=== PATIENT | male | born 1950 | race Caucasian/White ===

== ENCOUNTER 2024-09-19 16:33 | Inpatient (IN) | payer OTHER ==
[2024-09-19 17:08] VITALS: BMI 25.8
[2024-09-19 18:10] LABS: BASO % 0.4 % (0-2.0); EOS % 5.6 % (0-4.5); HEMATOCRIT 31.5 % (35.4-49); HEMOGLOBIN 9.9 GM/dL (11.7-16.9); LYMPH % 28.9 % (8-40); MCH 26.3 pg (25.7-33.7); MCHC 31.5 g/dl (32.0-35.9); MEAN CELL VOLUME 83.5 fl (80-96); MONO % 6.9 % (3.8-10.2); NEUT % 58.2 % (42.8-82.8); PLATELET COUNT 414 10^3/uL (134-434); RBC 3.77 M/mm3 (4.00-5.60); RDW 17.9 % (11.9-15.9); WHITE BLOOD COUNT 13.5 K/mm3 (4.0-10.0)
[2024-09-19 18:12] LABS: POTASSIUM 4.7 mmol/L (3.5-5.1)
[2024-09-19 18:14] LABS: ALBUMIN 2.2 g/dl (3.4-5.0); BLOOD UREA NITROGEN 30.6 mg/dL (7-18); CALCIUM 8.6 mg/dL (8.5-10.1)
[2024-09-19 18:17] LABS: CREATININE 0.8 mg/dL (0.55-1.3)
[2024-09-19 18:19] LABS: BILIRUBIN,TOTAL 0.2 mg/dL (0.2-1); TOT PROT 6.8 g/dl (6.4-8.2)
[2024-09-19 18:32] LABS: EPI CELLS >36 /uL (0-25.1); HYALINE CASTS 4 /uL (0-3.1); URINE APPEARANCE CLEAR; URINE BACTERIA 20 /uL (0-1359); URINE BILIRUBIN NEGATIVE (NEGATIVE); URINE COLOR YELLOW; URINE GLUCOSE (UA) NEGATIVE (NEGATIVE); URINE KETONE NEGATIVE (NEGATIVE); URINE LEUK ESTERASE 2+ (NEGATIVE); URINE NITRITE NEGATIVE (NEGATIVE); URINE PROTEIN 1+ (NEGATIVE); URINE RBC 15 /uL (0-23.9); URINE UROBILINOGEN 0.2 mg/dL (0.2-1.0); URINE WBC 443 /uL (0-25.8)
[2024-09-19] MEDS: SODIUM CHLORIDE 0.9% 500 ML INFUS.BAG IV ONE (18:36)
[2024-09-19 19:08] LABS: HIV INTERPRETATION NEGATIVE (NEGATIVE)
[2024-09-19] MEDS ORDERED: PIPERACILLIN/TAZOB 3.375 GM 3.375 GM in DEXTROSE 5%-WATER - 50 ML IVPB SCH (22:38)
[2024-09-19] MEDS ORDERED: VANCOMYCIN 1,000 MG in DEXTROSE 5%-WATER - 250 ML IVPB SCH (22:45)
[2024-09-19] MEDS ORDERED: PIPERACILLIN/TAZOB 3.375 GM 3.375 GM/50 ML BAG IVPB ONE (23:08)
[2024-09-19] MEDS ORDERED: VANCOMYCIN 1 GRAM (PRE-DOCKED) 1,000 MG/250 ML BAG IVPB ONE (23:08)
[2024-09-19] MEDS: PIPERACILLIN/TAZOB 3.375 GM 3.375 GM in DEXTROSE 5%-WATER - 50 ML IVPB SCH (23:30)
[2024-09-20] MEDS: VANCOMYCIN 1,000 MG in DEXTROSE 5%-WATER - 250 ML IVPB SCH (00:42)
[2024-09-20] MEDS ORDERED: PIPERACILLIN/TAZOB 3.375 GM 3.375 GM/50 ML BAG IVPB ONE ×2 (05:26→11:51)
[2024-09-20] MEDS: INSULIN ASPART SLIDING SCALE (NOVOLOG) 1 VIAL SQ SCH (07:09)
[2024-09-20 07:18] LABS: POTASSIUM 4.2 mmol/L (3.5-5.1)
[2024-09-20 07:20] LABS: CALCIUM 8.8 mg/dL (8.5-10.1)
[2024-09-20 07:21] LABS: ALBUMIN 2.3 g/dl (3.4-5.0); BLOOD UREA NITROGEN 21.3 mg/dL (7-18)
[2024-09-20 07:24] LABS: CREATININE 0.8 mg/dL (0.55-1.3)
[2024-09-20 07:25] LABS: BILIRUBIN,TOTAL 0.4 mg/dL (0.2-1)
[2024-09-20 07:47] LABS: HEMATOCRIT 30.9 % (35.4-49); HEMOGLOBIN 9.8 GM/dL (11.7-16.9); MCH 26.6 pg (25.7-33.7); MCHC 31.7 g/dl (32.0-35.9); MEAN CELL VOLUME 84.1 fl (80-96); PLATELET COUNT 350 10^3/uL (134-434); RBC 3.68 M/mm3 (4.00-5.60); RDW 17.2 % (11.9-15.9); WHITE BLOOD COUNT 13.2 K/mm3 (4.0-10.0)
[2024-09-20] MEDS ORDERED: VANCOMYCIN 1 GRAM (PRE-DOCKED) 1,000 MG/250 ML BAG IVPB ONE ×2 (11:51→21:58)
[2024-09-20] MEDS ORDERED: LOSARTAN POTASSIUM 50 MG TABLET ONE (11:51)
[2024-09-20] MEDS: LOSARTAN POTASSIUM 50 MG TABLET GT SCH (12:10)
[2024-09-20] MEDS: PATIENT'S OWN MEDICATION (NON-FORMULARY) (Aa/Hydrolyzed Collagen, Whey [Lps 15-30 Liquid] GT SCH (14:38)
[2024-09-20] MEDS: PATIENT'S OWN MEDICATION (NON-FORMULARY) (Argin/Glut/Cahmb/Collag/Mv-Min [Juven Packet] 1 GT SCH (14:38)
[2024-09-20] MEDS: PATIENT'S OWN MEDICATION (NON-FORMULARY) (Insulin Glargine,Hum.Rec.Anlog 100 UNITS/ML Ins) SQ SCH (14:38)
[2024-09-20] MEDS: PATIENT'S OWN MEDICATION (NON-FORMULARY) (Vit C/Ascorbate Calcium,Sodium [Vitamin C 500 Mg GT SCH (14:39)
[2024-09-20] MEDS: PATIENT'S OWN MEDICATION (NON-FORMULARY) (Omeprazole [Omeprazole] 20 MG Tablet.Dr) GT SCH (14:39)
[2024-09-20] MEDS: ZINC GLUCONATE 50 MG GT SCH (14:39)
[2024-09-20] MEDS ORDERED: INSULIN (LEVEMIR) 100 UNITS/ML UNITS SQ ONE (21:43)
[2024-09-20] MEDS ORDERED: FAMOTIDINE 20 MG TABLET ONE (21:43)
[2024-09-20] MEDS ORDERED: ATORVASTATIN CA 40 MG TABLET (FP) ONE (21:43)
[2024-09-20] MEDS: FAMOTIDINE 20 MG/2.5 ML ORAL LIQUID GT SCH (21:46)
[2024-09-20] MEDS: ATORVASTATIN CA 40 MG TABLET (FP) GT SCH (21:46)
[2024-09-20] MEDS: INSULIN (LEVEMIR) 100 UNITS/ML UNITS SQ SCH (21:46)
[2024-09-21 07:37] LABS: POTASSIUM 4.1 mmol/L (3.5-5.1)
[2024-09-21 07:54] LABS: ALBUMIN 2.2 g/dl (3.4-5.0); CALCIUM 8.4 mg/dL (8.5-10.1)
[2024-09-21 07:55] LABS: BLOOD UREA NITROGEN 21.6 mg/dL (7-18)
[2024-09-21 07:59] LABS: BILIRUBIN,TOTAL 0.3 mg/dL (0.2-1); TOT PROT 6.5 g/dl (6.4-8.2)
[2024-09-21 08:01] LABS: BASO % 0.5 % (0-2.0); EOS % 5.8 % (0-4.5); HEMATOCRIT 30.9 % (35.4-49); HEMOGLOBIN 9.8 GM/dL (11.7-16.9); LYMPH % 27.4 % (8-40); MCH 26.4 pg (25.7-33.7); MCHC 31.7 g/dl (32.0-35.9); MEAN CELL VOLUME 83.4 fl (80-96); MEAN PLT VOLUME 7.1 fl (7.5-11.1); MONO % 6.4 % (3.8-10.2); NEUT % 59.9 % (42.8-82.8); PLATELET COUNT 402 10^3/uL (134-434); RBC 3.71 M/mm3 (4.00-5.60); WHITE BLOOD COUNT 12.5 K/mm3 (4.0-10.0)
[2024-09-21] MEDS: ASCORBIC ACID 500 MG/5 ML UNIT DOSE CUP GT SCH (12:05)
[2024-09-21] MEDS: VANCOMYCIN/WATER FOR INJ (PEG) 1,000 MG/200 ML BAG IVPB ONE (12:11)
[2024-09-22] MEDS: ACETAMINOPHEN 1000 MG/100 ML BAG IVPB ONE (01:22)
[2024-09-22 09:14] LABS: HEMATOCRIT 31.4 % (35.4-49); HEMOGLOBIN 9.7 GM/dL (11.7-16.9); MCH 26.1 pg (25.7-33.7); MEAN CELL VOLUME 84.2 fl (80-96); MEAN PLT VOLUME 6.9 fl (7.5-11.1); PLATELET COUNT 431 10^3/uL (134-434); RBC 3.73 M/mm3 (4.00-5.60); RDW 18.4 % (11.9-15.9); WHITE BLOOD COUNT 12.2 K/mm3 (4.0-10.0)
[2024-09-22 09:33] LABS: POTASSIUM 4.2 mmol/L (3.5-5.1)
[2024-09-22 09:36] LABS: ALBUMIN 2.3 g/dl (3.4-5.0); CALCIUM 8.8 mg/dL (8.5-10.1)
[2024-09-22 09:40] LABS: CREATININE 1.3 mg/dL (0.55-1.3)
[2024-09-22 09:41] LABS: BILIRUBIN,TOTAL 0.2 mg/dL (0.2-1); TOT PROT 6.7 g/dl (6.4-8.2)
[2024-09-22] MEDS: NYSTATIN 100,000 UNIT/GM TOPICAL CREAM 15 GM TUBE TP SCH (18:25)
[2024-09-22] MEDS: ZINC OXIDE 20% TOPICAL OINTMENT 30 GM TUBE TP SCH (18:26)
[2024-09-22] MEDS ORDERED: LOPERAMIDE HCL 1 MG/5 ML UNIT DOSE CUP PO ONE (19:51)
[2024-09-22] MEDS ORDERED: LOPERAMIDE HCL 1 MG/5 ML UNIT DOSE CUP PEG ONE (21:00)
[2024-09-22] MEDS: LOPERAMIDE HCL 1 MG/7.5 ML LIQUID GT ONE (22:30)
[2024-09-23 07:06] LABS: HEMATOCRIT 31.6 % (35.4-49); HEMOGLOBIN 9.9 GM/dL (11.7-16.9); MCH 26.5 pg (25.7-33.7); MCHC 31.2 g/dl (32.0-35.9); MEAN CELL VOLUME 84.9 fl (80-96); MEAN PLT VOLUME 7.4 fl (7.5-11.1); PLATELET COUNT 377 10^3/uL (134-434); RBC 3.73 M/mm3 (4.00-5.60); RDW 17.9 % (11.9-15.9); WHITE BLOOD COUNT 13.2 K/mm3 (4.0-10.0)
[2024-09-23 08:55] LABS: POTASSIUM 4.2 mmol/L (3.5-5.1)
[2024-09-23 08:57] LABS: ALBUMIN 2.4 g/dl (3.4-5.0)
[2024-09-23 08:58] LABS: BLOOD UREA NITROGEN 31.7 mg/dL (7-18)
[2024-09-23 09:01] LABS: CREATININE 1.2 mg/dL (0.55-1.3)
[2024-09-23 09:02] LABS: BILIRUBIN,TOTAL 0.3 mg/dL (0.2-1); TOT PROT 6.9 g/dl (6.4-8.2)
[2024-09-23] MEDS: LACTOBACILLUS ACIDOPHILUS 1 TABLET PO SCH (16:26)
[2024-09-23] MEDS: INSULIN ASPART SLIDING SCALE (NOVOLOG) 1 VIAL SQ SCH (16:37)
[2024-09-23] MEDS: INSULIN (LEVEMIR) 100 UNITS/ML UNITS SQ SCH (22:17)
[2024-09-23] MEDS: ATORVASTATIN CA 40 MG TABLET (FP) GT SCH (22:24)
[2024-09-23] MEDS: NYSTATIN 100,000 UNIT/GM TOPICAL CREAM 15 GM TUBE TP SCH (22:53)
[2024-09-23] MEDS: FAMOTIDINE 20 MG/2.5 ML ORAL LIQUID GT SCH (22:54)
[2024-09-23] MEDS: ZINC OXIDE 20% TOPICAL OINTMENT 30 GM TUBE TP SCH (22:54)
[2024-09-24] MEDS ORDERED: ZINC GLUCONATE 50 MG GT SCH (10:00)
[2024-09-24] MEDS: MULTIVIT-MINERALS ORAL LIQUID PO SCH (10:46)
[2024-09-24] MEDS: LOSARTAN POTASSIUM 50 MG TABLET GT SCH (10:46)
[2024-09-24] MEDS: ASCORBIC ACID 500 MG/5 ML UNIT DOSE CUP GT SCH (10:46)
[2024-09-24 13:35] LABS: HEMATOCRIT 32.9 % (35.4-49); HEMOGLOBIN 10.2 GM/dL (11.7-16.9); MCH 26.1 pg (25.7-33.7); MCHC 30.9 g/dl (32.0-35.9); MEAN CELL VOLUME 84.3 fl (80-96); MEAN PLT VOLUME 7.4 fl (7.5-11.1); PLATELET COUNT 371 10^3/uL (134-434); RDW 18.1 % (11.9-15.9); WHITE BLOOD COUNT 12.8 K/mm3 (4.0-10.0)
[2024-09-24 13:56] LABS: POTASSIUM 4.3 mmol/L (3.5-5.1)
[2024-09-24 13:58] LABS: CALCIUM 8.9 mg/dL (8.5-10.1)
[2024-09-24 13:59] LABS: ALBUMIN 2.4 g/dl (3.4-5.0); BLOOD UREA NITROGEN 31.3 mg/dL (7-18)
[2024-09-24 14:02] LABS: CREATININE 1.2 mg/dL (0.55-1.3)
[2024-09-24 14:04] LABS: BILIRUBIN,TOTAL 0.2 mg/dL (0.2-1); TOT PROT 6.9 g/dl (6.4-8.2)
[2024-09-24] MEDS: AMINO ACIDS/PROTEIN HYDROLYS 30 ML LIQUID.PKT PEG SCH (18:14)
[2024-09-24] MEDS: BANATROL PLUS POWDER PACKET PEG SCH (21:51)
[2024-09-25 10:36] LABS: BASO % 0.3 % (0-2.0); EOS % 3.8 % (0-4.5); HEMATOCRIT 30.8 % (35.4-49); HEMOGLOBIN 10.1 GM/dL (11.7-16.9); LYMPH % 25.1 % (8-40); MCH 27.4 pg (25.7-33.7); MCHC 32.7 g/dl (32.0-35.9); MEAN CELL VOLUME 83.9 fl (80-96); MEAN PLT VOLUME 7.2 fl (7.5-11.1); MONO % 6.5 % (3.8-10.2); NEUT % 64.3 % (42.8-82.8); PLATELET COUNT 388 10^3/uL (134-434); RBC 3.68 M/mm3 (4.00-5.60); WHITE BLOOD COUNT 11.6 K/mm3 (4.0-10.0)
[2024-09-25 11:01] LABS: POTASSIUM 4.4 mmol/L (3.5-5.1)
[2024-09-25 11:09] LABS: ALBUMIN 2.4 g/dl (3.4-5.0); CALCIUM 8.9 mg/dL (8.5-10.1); MAGNESIUM 2.3 mg/dL (1.8-2.4)
[2024-09-25 11:10] LABS: BLOOD UREA NITROGEN 34.3 mg/dL (7-18)
[2024-09-25 11:12] LABS: CREATININE 1.3 mg/dL (0.55-1.3); PHOSPHOROUS 3.9 mg/dL (2.5-4.9)
[2024-09-25 11:14] LABS: BILIRUBIN,TOTAL 0.3 mg/dL (0.2-1); TOT PROT 6.8 g/dl (6.4-8.2)
[2024-09-25] MEDS: QUEtiapine FUMARATE 25 MG TABLET GT SCH (13:48)
[2024-09-26 09:24] LABS: BASO % 0.5 % (0-2.0); HEMATOCRIT 31.3 % (35.4-49); HEMOGLOBIN 9.9 GM/dL (11.7-16.9); LYMPH % 23.6 % (8-40); MCH 26.8 pg (25.7-33.7); MCHC 31.7 g/dl (32.0-35.9); MEAN CELL VOLUME 84.7 fl (80-96); MEAN PLT VOLUME 7.4 fl (7.5-11.1); MONO % 5.5 % (3.8-10.2); NEUT % 66.4 % (42.8-82.8); PLATELET COUNT 356 10^3/uL (134-434); WHITE BLOOD COUNT 13.4 K/mm3 (4.0-10.0)
[2024-09-26 09:45] LABS: POTASSIUM 4.5 mmol/L (3.5-5.1)
[2024-09-26 09:46] LABS: CALCIUM 8.6 mg/dL (8.5-10.1)
[2024-09-26 09:48] LABS: ALBUMIN 2.3 g/dl (3.4-5.0); BLOOD UREA NITROGEN 36.6 mg/dL (7-18)
[2024-09-26 09:51] LABS: CREATININE 1.1 mg/dL (0.55-1.3)
[2024-09-26 09:52] LABS: BILIRUBIN,TOTAL 0.3 mg/dL (0.2-1); TOT PROT 6.8 g/dl (6.4-8.2)
[2024-09-27 09:59] LABS: POTASSIUM 4.7 mmol/L (3.5-5.1)
[2024-09-27 10:00] LABS: CALCIUM 8.7 mg/dL (8.5-10.1)
[2024-09-27 10:01] LABS: ALBUMIN 2.2 g/dl (3.4-5.0); BASO % 0.3 % (0-2.0); BLOOD UREA NITROGEN 37.6 mg/dL (7-18); HEMATOCRIT 29.4 % (35.4-49); HEMOGLOBIN 9.2 GM/dL (11.7-16.9); LYMPH % 21.1 % (8-40); MCH 26.3 pg (25.7-33.7); MCHC 31.2 g/dl (32.0-35.9); MEAN CELL VOLUME 84.5 fl (80-96); MEAN PLT VOLUME 7.8 fl (7.5-11.1); MONO % 7.1 % (3.8-10.2); NEUT % 70.5 % (42.8-82.8); PLATELET COUNT 355 10^3/uL (134-434); RBC 3.48 M/mm3 (4.00-5.60); RDW 17.9 % (11.9-15.9); WHITE BLOOD COUNT 18.5 K/mm3 (4.0-10.0)
[2024-09-27 10:04] LABS: CREATININE 1.2 mg/dL (0.55-1.3)
[2024-09-27 10:05] LABS: BILIRUBIN,TOTAL 0.3 mg/dL (0.2-1); TOT PROT 6.9 g/dl (6.4-8.2)
[2024-09-27] MEDS: METOPROLOL TARTRATE 25 MG TABLET (FP) GT SCH (12:55)
[2024-09-27] MEDS ORDERED: ACETAMINOPHEN 325 MG TABLET (FP) PO PRN (13:11)
[2024-09-27] MEDS: ACETAMINOPHEN 650 MG/20.3 ML ORAL SOLUTION (CUPS) GT PRN (13:33)
[2024-09-27 18:32] LABS: EPI CELLS 17 /uL (0-25.1); HYALINE CASTS 4 /uL (0-3.1); URINE APPEARANCE TURBID; URINE BACTERIA 15 /uL (0-1359); URINE BILIRUBIN NEGATIVE (NEGATIVE); URINE COLOR YELLOW; URINE GLUCOSE (UA) NEGATIVE (NEGATIVE); URINE KETONE NEGATIVE (NEGATIVE); URINE LEUK ESTERASE 2+ (NEGATIVE); URINE NITRITE NEGATIVE (NEGATIVE); URINE PROTEIN 1+ (NEGATIVE); URINE RBC 50 /uL (0-23.9); URINE UROBILINOGEN 0.2 mg/dL (0.2-1.0); URINE WBC 1094 /uL (0-25.8)
[2024-09-27] MEDS ORDERED: INSULIN ASPART SLIDING SCALE (NOVOLOG) 1 VIAL SQ ONE (19:41)
[2024-09-27] MEDS: PIPERACILLIN/TAZOB 3.375 GM 50 ML IVPB SCH (19:50)
[2024-09-28 13:07] LABS: BASO % 0.4 % (0-2.0); EOS % 2.1 % (0-4.5); HEMATOCRIT 25.5 % (35.4-49); HEMOGLOBIN 8.1 GM/dL (11.7-16.9); LYMPH % 22.7 % (8-40); MCH 26.3 pg (25.7-33.7); MCHC 31.7 g/dl (32.0-35.9); MEAN CELL VOLUME 82.9 fl (80-96); MEAN PLT VOLUME 7.8 fl (7.5-11.1); MONO % 7.3 % (3.8-10.2); NEUT % 67.5 % (42.8-82.8); PLATELET COUNT 298 10^3/uL (134-434); RBC 3.07 M/mm3 (4.00-5.60); RDW 18.2 % (11.9-15.9); WHITE BLOOD COUNT 12.5 K/mm3 (4.0-10.0)
[2024-09-28 13:26] LABS: POTASSIUM 4.6 mmol/L (3.5-5.1)
[2024-09-28 13:28] LABS: CALCIUM 8.5 mg/dL (8.5-10.1)
[2024-09-28 13:29] LABS: BLOOD UREA NITROGEN 48.2 mg/dL (7-18)
[2024-09-28 13:32] LABS: CREATININE 1.5 mg/dL (0.55-1.3)
[2024-09-28 13:34] LABS: BILIRUBIN,TOTAL 0.3 mg/dL (0.2-1); TOT PROT 6.4 g/dl (6.4-8.2)
[2024-09-28] MEDS: DEXTROSE 5%-NORMAL SALINE 1,000 ML IV SCH ×2 (18:32→18:55)
[2024-09-29] MEDS: LOSARTAN POTASSIUM 50 MG TABLET GT SCH (09:45)
[2024-09-29 09:52] LABS: BASO % 0.5 % (0-2.0); EOS % 3.3 % (0-4.5); HEMATOCRIT 26.5 % (35.4-49); HEMOGLOBIN 8.5 GM/dL (11.7-16.9); LYMPH % 28.1 % (8-40); MCH 26.5 pg (25.7-33.7); MEAN CELL VOLUME 82.8 fl (80-96); MONO % 8.3 % (3.8-10.2); NEUT % 59.8 % (42.8-82.8); PLATELET COUNT 321 10^3/uL (134-434); RDW 17.5 % (11.9-15.9); WHITE BLOOD COUNT 11.8 K/mm3 (4.0-10.0)
[2024-09-29 10:13] LABS: CALCIUM 8.7 mg/dL (8.5-10.1)
[2024-09-29 10:14] LABS: BLOOD UREA NITROGEN 36.5 mg/dL (7-18)
[2024-09-29 10:16] LABS: BILIRUBIN,TOTAL 0.3 mg/dL (0.2-1)
[2024-09-29 10:17] LABS: CREATININE 1.4 mg/dL (0.55-1.3)
[2024-09-29 10:19] LABS: TOT PROT 6.5 g/dl (6.4-8.2)
[2024-09-29] MEDS: DEXTROSE 5%-LACTATED RINGERS 1,000 ML IV SCH (15:24)
[2024-09-29] MEDS: LOPERAMIDE HCL 1 MG/5 ML UNIT DOSE CUP PO ONE (15:25)
[2024-09-29] MEDS: LOPERAMIDE HCL 1 MG/5 ML UNIT DOSE CUP GT ONE (16:15)
[2024-09-30 09:37] LABS: BASO % 0.4 % (0-2.0); HEMATOCRIT 25.1 % (35.4-49); LYMPH % 35.3 % (8-40); MCH 26.7 pg (25.7-33.7); MCHC 31.8 g/dl (32.0-35.9); MEAN CELL VOLUME 83.9 fl (80-96); MEAN PLT VOLUME 7.8 fl (7.5-11.1); MONO % 6.4 % (3.8-10.2); NEUT % 52.9 % (42.8-82.8); PLATELET COUNT 292 10^3/uL (134-434); RBC 2.99 M/mm3 (4.00-5.60); RDW 17.7 % (11.9-15.9); WHITE BLOOD COUNT 10.3 K/mm3 (4.0-10.0)
[2024-09-30 09:46] LABS: POTASSIUM 4.2 mmol/L (3.5-5.1)
[2024-09-30 09:48] LABS: CALCIUM 8.4 mg/dL (8.5-10.1)
[2024-09-30 09:49] LABS: ALBUMIN 1.9 g/dl (3.4-5.0)
[2024-09-30 09:52] LABS: CREATININE 1.2 mg/dL (0.55-1.3)
[2024-09-30 09:53] LABS: BILIRUBIN,TOTAL 0.2 mg/dL (0.2-1)
[2024-09-30 09:54] LABS: TOT PROT 6.2 g/dl (6.4-8.2)
[2024-09-30] MEDS ORDERED: INSULIN ASPART SLIDING SCALE (NOVOLOG) 1 VIAL SQ ONE (12:25)
[2024-09-30 13:28] LABS: INR 1.2 (0.83-1.09); PROTHROMBIN TIME (PATIENT) 13.5 SEC (9.7-13.0)
[2024-10-01 10:05] LABS: INR 1.18 (0.83-1.09); PROTHROMBIN TIME (PATIENT) 13.5 SEC (9.7-13.0)
[2024-10-01 10:06] LABS: BASO % 0.4 % (0-2.0); EOS % 4.6 % (0-4.5); HEMATOCRIT 25.8 % (35.4-49); HEMOGLOBIN 8.2 GM/dL (11.7-16.9); LYMPH % 38.4 % (8-40); MCH 26.2 pg (25.7-33.7); MCHC 31.9 g/dl (32.0-35.9); MEAN CELL VOLUME 82.2 fl (80-96); MEAN PLT VOLUME 7.6 fl (7.5-11.1); NEUT % 50.6 % (42.8-82.8); PLATELET COUNT 338 10^3/uL (134-434); RBC 3.14 M/mm3 (4.00-5.60); RDW 17.2 % (11.9-15.9); WHITE BLOOD COUNT 10.5 K/mm3 (4.0-10.0)
[2024-10-01 10:20] LABS: POTASSIUM 4.3 mmol/L (3.5-5.1)
[2024-10-01 10:37] LABS: CALCIUM 9.2 mg/dL (8.5-10.1)
[2024-10-01 10:38] LABS: BLOOD UREA NITROGEN 21.6 mg/dL (7-18)
[2024-10-01 10:42] LABS: BILIRUBIN,TOTAL 0.2 mg/dL (0.2-1); TOT PROT 6.8 g/dl (6.4-8.2)
[2024-10-01] MEDS: CEFTRIAXONE 1 GM in DEXTROSE 5%-WATER - 50 ML IVPB SCH (11:38)
[2024-10-01] MEDS ORDERED: FENTANYL CITRATE/PF 50 MCG/ML VIAL ONE (12:53)
[2024-10-01] MEDS: FENTANYL CITRATE/PF 50 MCG/ML VIAL IVPUSH ONE (12:56)
[2024-10-01] MEDS ORDERED: MIDAZOLAM HCL 2 MG/2 ML SINGLE DOSE VIAL ONE (13:05)
[2024-10-01] MEDS: MIDAZOLAM HCL 2 MG/2 ML SINGLE DOSE VIAL IVPUSH ONE (13:07)
[2024-10-01] MEDS: CEFTRIAXONE 1 G/50 ML PREMIX 50 ML IVPB SCH (14:40)
[2024-10-02 10:07] LABS: BASO % 0.2 % (0-2.0); EOS % 5.3 % (0-4.5); HEMATOCRIT 29.2 % (35.4-49); HEMOGLOBIN 9.1 GM/dL (11.7-16.9); LYMPH % 22.9 % (8-40); MCH 25.9 pg (25.7-33.7); MCHC 31.3 g/dl (32.0-35.9); MEAN CELL VOLUME 82.9 fl (80-96); MEAN PLT VOLUME 7.6 fl (7.5-11.1); MONO % 2.6 % (3.8-10.2); PLATELET COUNT 402 10^3/uL (134-434); RBC 3.52 M/mm3 (4.00-5.60); RDW 17.7 % (11.9-15.9); WHITE BLOOD COUNT 12.7 K/mm3 (4.0-10.0)
[2024-10-02 10:35] LABS: POTASSIUM 4.7 mmol/L (3.5-5.1)
[2024-10-02 10:37] LABS: ALBUMIN 2.1 g/dl (3.4-5.0); CALCIUM 8.9 mg/dL (8.5-10.1)
[2024-10-02 10:38] LABS: BLOOD UREA NITROGEN 26.5 mg/dL (7-18)
[2024-10-02 10:40] LABS: CREATININE 1.1 mg/dL (0.55-1.3)
[2024-10-02 10:42] LABS: BILIRUBIN,TOTAL 0.2 mg/dL (0.2-1); TOT PROT 6.6 g/dl (6.4-8.2)
[2024-10-03 10:23] LABS: BASO % 0.2 % (0-2.0); EOS % 10.6 % (0-4.5); HEMATOCRIT 29.2 % (35.4-49); HEMOGLOBIN 9.3 GM/dL (11.7-16.9); LYMPH % 17.8 % (8-40); MCH 26.4 pg (25.7-33.7); MEAN CELL VOLUME 82.6 fl (80-96); MEAN PLT VOLUME 7.7 fl (7.5-11.1); MONO % 3.6 % (3.8-10.2); NEUT % 67.8 % (42.8-82.8); PLATELET COUNT 350 10^3/uL (134-434); RBC 3.53 M/mm3 (4.00-5.60); RDW 18.1 % (11.9-15.9); WHITE BLOOD COUNT 15.6 K/mm3 (4.0-10.0)
[2024-10-03 10:29] LABS: POTASSIUM 4.8 mmol/L (3.5-5.1)
[2024-10-03 11:02] LABS: ALBUMIN 2.3 g/dl (3.4-5.0); BLOOD UREA NITROGEN 26.3 mg/dL (7-18)
[2024-10-03 11:03] LABS: BILIRUBIN,TOTAL 0.2 mg/dL (0.2-1)
[2024-10-03 11:04] LABS: CALCIUM 9.2 mg/dL (8.5-10.1)
[2024-10-03 11:05] LABS: CREATININE 1.1 mg/dL (0.55-1.3)
[2024-10-03] MEDS: hydrOXYzine HCL 10 MG/5 ML LIQUID BULK BOTTLE GT PRN (11:23)
[2024-10-03] MEDS: BANATROL PLUS POWDER PACKET PEG SCH (14:15)
[2024-10-03] MEDS: NYSTATIN 100,000 UNIT/GM TOPICAL CREAM 15 GM TUBE TP SCH (21:36)
[2024-10-04 09:52] LABS: BASO % 0.2 % (0-2.0); EOS % 7.5 % (0-4.5); HEMATOCRIT 29.4 % (35.4-49); HEMOGLOBIN 9.2 GM/dL (11.7-16.9); LYMPH % 21.4 % (8-40); MCH 26.1 pg (25.7-33.7); MCHC 31.4 g/dl (32.0-35.9); MEAN CELL VOLUME 83.2 fl (80-96); MEAN PLT VOLUME 7.3 fl (7.5-11.1); MONO % 4.3 % (3.8-10.2); NEUT % 66.6 % (42.8-82.8); PLATELET COUNT 391 10^3/uL (134-434); RBC 3.54 M/mm3 (4.00-5.60); RDW 17.4 % (11.9-15.9); WHITE BLOOD COUNT 16.7 K/mm3 (4.0-10.0)
[2024-10-04] MEDS: CLOTRIMAZOLE 1% CREAM TP SCH (11:18)
[2024-10-05 12:05] LABS: HEMOGLOBIN 9.4 GM/dL (11.7-16.9); MCH 26.1 pg (25.7-33.7); MCHC 31.3 g/dl (32.0-35.9); MEAN CELL VOLUME 83.4 fl (80-96); RBC 3.59 M/mm3 (4.00-5.60); RDW 17.2 % (11.9-15.9); WHITE BLOOD COUNT 17.6 K/mm3 (4.0-10.0)
[2024-10-05 12:30] LABS: POTASSIUM 4.9 mmol/L (3.5-5.1)
[2024-10-05 12:36] LABS: ALBUMIN 2.6 g/dl (3.4-5.0); BLOOD UREA NITROGEN 27.4 mg/dL (7-18); CALCIUM 9.4 mg/dL (8.5-10.1); MAGNESIUM 1.9 mg/dL (1.8-2.4)
[2024-10-05 12:39] LABS: PHOSPHOROUS 3.9 mg/dL (2.5-4.9)
[2024-10-05 12:41] LABS: BILIRUBIN,TOTAL 0.1 mg/dL (0.2-1); TOT PROT 7.6 g/dl (6.4-8.2)
[2024-10-05 12:58] LABS: ANISOCYTOSIS 0; MACROCYTOSIS 0
[2024-10-05 13:33] LABS: PLATELET ESTIMATE ADEQUATE
[2024-10-05 20:44] VITALS: RESP 18
[2024-10-06 09:32] LABS: HEMATOCRIT 30.3 % (35.4-49); HEMOGLOBIN 9.6 GM/dL (11.7-16.9); MCH 26.3 pg (25.7-33.7); MCHC 31.7 g/dl (32.0-35.9); MEAN CELL VOLUME 82.9 fl (80-96); MEAN PLT VOLUME 6.9 fl (7.5-11.1); PLATELET COUNT 544 10^3/uL (134-434); RBC 3.66 M/mm3 (4.00-5.60); RDW 17.8 % (11.9-15.9); WHITE BLOOD COUNT 16.4 K/mm3 (4.0-10.0)
[2024-10-06 09:43] LABS: POTASSIUM 4.8 mmol/L (3.5-5.1)
[2024-10-06 09:52] LABS: ALBUMIN 2.5 g/dl (3.4-5.0); BLOOD UREA NITROGEN 28.2 mg/dL (7-18); CALCIUM 9.5 mg/dL (8.5-10.1); MAGNESIUM 1.9 mg/dL (1.8-2.4)
[2024-10-06 10:00] LABS: CREATININE 0.9 mg/dL (0.55-1.3)
[2024-10-06 10:02] LABS: BILIRUBIN,TOTAL 0.2 mg/dL (0.2-1); TOT PROT 7.4 g/dl (6.4-8.2)
[2024-10-06 10:20] LABS: ANISOCYTOSIS 0; MACROCYTOSIS 0
[2024-10-06] MEDS: ATORVASTATIN CA 40 MG TABLET (FP) GT SCH (21:11)
[2024-10-06] MEDS: FAMOTIDINE 20 MG/2.5 ML ORAL LIQUID PEG SCH (21:15)
[2024-10-06] MEDS ORDERED: ATORVASTATIN CA 40 MG TABLET (FP) PO SCH (22:00)
[2024-10-07 15:03] VITALS: BP 124/68; PULSE 90; TEMP 98.8
== END 2024-10-07 16:15 | DRG 871 ==
LOC: JER 16:33 → INTOOBSV 20:08 → UNDOADMOB 20:08 → JERBED 20:08 → UNDOADMIN 20:08 → JERBED 22:27 → J4W 09-21 00:47 → J5S 09-23 13:24 → OBSVTOIN 09-28 10:37
PROVIDERS: ADMIT Internal Medicine
PROC: 06H03DZ Insertion of Intraluminal Device into Inferior Vena Cava, Percutaneous Approach (ICD-10-PCS; principal; 2024-10-01)
DX: A41.9 Sepsis, unspecified organism (principal); J18.9 Pneumonia, unspecified organism; E87.0 Hyperosmolality and hypernatremia; I69.351 Hemiplegia and hemiparesis following cerebral infarction affecting right dominant side; J96.10 Chronic respiratory failure, unspecified whether with hypoxia or hypercapnia; I82.411 Acute embolism and thrombosis of right femoral vein; N17.9 Acute kidney failure, unspecified; I82.412 Acute embolism and thrombosis of left femoral vein; E11.9 Type 2 diabetes mellitus without complications; E78.5 Hyperlipidemia, unspecified; I10 Essential (primary) hypertension; E86.0 Dehydration; K21.9 Gastro-esophageal reflux disease without esophagitis
CPT/HCPCS: 0241U-QW; 36415; 37191; 70450-TC; 71045-TC-FY; 74018-TC-FY; 76700-TC; 76705-TC; 80053; 80061; 81003; 82272; 82728; 82962; 82977; 83036; 83516; 83540; 83550; 83605; 83735; 84080; 84100; 84443; 84466; 85025; 85027; 85610; 86704; 86803; 86850; 86900; 86901; 87040; 87045; 87046; 87070; 87086; 87186; 87205; 87324; 87340; 87389; 87449; 87481; 87517; 93005; 93010; 93306-TC; 93880-TC; 93970-TC; 97163-GP; 99285-25; G0378; G0480; J0131

== ENCOUNTER 2024-10-18 13:40 | Inpatient (IN) | payer OTHER ==
[2024-10-18 14:49] LABS: HEMATOCRIT 24.4 % (35.4-49); HEMOGLOBIN 7.6 GM/dL (11.7-16.9); MCH 26.3 pg (25.7-33.7); MCHC 31.3 g/dl (32.0-35.9); MEAN CELL VOLUME 84.1 fl (80-96); MEAN PLT VOLUME 7.6 fl (7.5-11.1); PLATELET COUNT 394 10^3/uL (134-434); RDW 18.4 % (11.9-15.9); VENOUS BASE EXCESS -14.5 mmol/L (-2-2); VENOUS O2 SATURATION 31.8 % (70-80); VENOUS PH 7.266 (7.310-7.410); WHITE BLOOD COUNT 22.7 K/mm3 (4.0-10.0)
[2024-10-18 14:54] LABS: INR 1.22 (0.83-1.09); PROTHROMBIN TIME (PATIENT) 13.7 SEC (9.7-13.0)
[2024-10-18 14:57] LABS: ACTIVATED PTT 26.2 SECONDS (25.2-36.5)
[2024-10-18 15:14] LABS: CHLORIDE 120 mmol/L (98-107); POTASSIUM 3.2 mmol/L (3.5-5.1); SODIUM 148 mmol/L (136-145)
[2024-10-18 15:17] LABS: ANION GAP 14 mmol/L (4-13); CO2 14 mmol/L (21-32); GLUCOSE,RANDOM 174 mg/dL (74-106)
[2024-10-18 15:20] LABS: CREATININE 2.4 mg/dL (0.55-1.3); SGOT/AST 28 U/L (15-37); SGPT/ALT 75 U/L (13-61)
[2024-10-18 15:22] LABS: BILIRUBIN,TOTAL 0.2 mg/dL (0.2-1)
[2024-10-18 15:35] LABS: ALBUMIN 0.9 g/dl (3.4-5.0); ALK PHOS 249 U/L (45-117); BLOOD UREA NITROGEN 109.7 mg/dL (7-18)
[2024-10-18 15:36] LABS: LACTIC ACID 3.8 mmol/L (0.4-2.0)
[2024-10-18 15:53] LABS: ANISOCYTOSIS 1+; MACROCYTOSIS 0
[2024-10-18 15:55] LABS: PLATELET ESTIMATE ADEQUATE
[2024-10-18] MEDS: SODIUM CHLORIDE 1,000 ML IV STA (16:38)
[2024-10-18 17:02] LABS: CHLORIDE 99 mmol/L (98-107); POTASSIUM 5.8 mmol/L (3.5-5.1); SODIUM 135 mmol/L (136-145)
[2024-10-18 17:04] LABS: CALCIUM 8.1 mg/dL (8.5-10.1)
[2024-10-18 17:05] LABS: ANION GAP 16 mmol/L (4-13); CO2 20 mmol/L (21-32); GLUCOSE,RANDOM 242 mg/dL (74-106)
[2024-10-18 17:07] LABS: CREATININE 4.3 mg/dL (0.55-1.3); SGOT/AST 66 U/L (15-37); SGPT/ALT 132 U/L (13-61)
[2024-10-18 17:08] LABS: BILIRUBIN,TOTAL 0.4 mg/dL (0.2-1)
[2024-10-18 17:18] LABS: ALBUMIN 1.6 g/dl (3.4-5.0); ALK PHOS 449 U/L (45-117); BLOOD UREA NITROGEN 158.2 mg/dL (7-18); TOT PROT 5.6 g/dl (6.4-8.2)
[2024-10-18] MEDS: SODIUM CHLORIDE 0.9% 500 ML INFUS.BAG IV ONE ×2 (17:24→21:36)
[2024-10-18] MEDS: PANTOPRAZOLE SODIUM 40 MG VIAL IVPUSH ONE ×2 (17:25→20:56)
[2024-10-18] MEDS: SODIUM CHLORIDE 500 ML IV STA (17:47)
[2024-10-18] MEDS ORDERED: PANTOPRAZOLE SODIUM 80 MG/200 ML BAG IVPB ONE (20:20)
[2024-10-18] MEDS ORDERED: VANCOMYCIN 1 GRAM (PRE-DOCKED) 1,000 MG/250 ML BAG IVPB ONE (20:20)
[2024-10-18] MEDS ORDERED: CEFEPIME 1 GM/100 ML BAG IVPB ONE (20:20)
[2024-10-18] MEDS: CEFEPIME HCL 1 GM VIAL (RESTRICTED TO ID) IVPB ONE (20:56)
[2024-10-18] MEDS: VANCOMYCIN 1,000 MG in DEXTROSE 5%-WATER - 250 ML IVPB ONE ×2 (22:16→22:36)
[2024-10-18 22:19] LABS: EPI CELLS 9 /uL (0-25.1); HYALINE CASTS 7 /uL (0-3.1); URINE APPEARANCE TURBID; URINE BILIRUBIN 1+ (NEGATIVE); URINE COLOR DK YELLOW; URINE GLUCOSE (UA) NEGATIVE (NEGATIVE); URINE KETONE TRACE (NEGATIVE); URINE LEUK ESTERASE 2+ (NEGATIVE); URINE NITRITE NEGATIVE (NEGATIVE); URINE PROTEIN 2+ (NEGATIVE); URINE WBC 2369 /uL (0-25.8)
[2024-10-18] MEDS ORDERED: MEROPENEM 500 MG in DEXTROSE 5%-WATER 100 ML IVPB SCH (22:30)
[2024-10-18 22:47] LABS: URINE BACTERIA 146.4 /uL (0-1359); URINE RBC 183.2 /uL (0-23.9)
[2024-10-18 22:48] LABS: URINE CRYSTALS PRESENT /hpf
[2024-10-18 22:49] LABS: YEAST POSITIVE (NEGATIVE)
[2024-10-19] MEDS ORDERED: MEROPENEM 500 MG VIAL (RESTRICTED TO ID) IVPB ONE ×2 (00:43→10:39)
[2024-10-19] MEDS: MEROPENEM-0.9% SODIUM CHLORIDE 500 MG/50 ML BAG IVPB SCH ×2 (00:47→22:10)
[2024-10-19] MEDS ORDERED: HEPARIN NA (PORCINE) 5,000 UNITS/ML 1ML VIAL SQ SCH (06:00)
[2024-10-19] MEDS ORDERED: ENOXAPARIN NA (PORCINE) 40 MG/0.4 ML DISP.SYRIN SQ SCH (10:00)
[2024-10-19] MEDS: INSULIN ASPART SLIDING SCALE (NOVOLOG) 1 VIAL SQ SCH (10:56)
[2024-10-19] MEDS ORDERED: PIPERACILLIN/TAZOB 2.25 GM 2.25 GM in DEXTROSE 5%-WATER - 50 ML IVPB SCH (18:00)
[2024-10-19 18:26] LABS: HEMATOCRIT 36.6 % (35.4-49); HEMOGLOBIN 11.7 GM/dL (11.7-16.9); MCH 26.7 pg (25.7-33.7); MCHC 32.1 g/dl (32.0-35.9); MEAN CELL VOLUME 83.2 fl (80-96); MEAN PLT VOLUME 8.3 fl (7.5-11.1); PLATELET COUNT 520 10^3/uL (134-434); RBC 4.39 M/mm3 (4.00-5.60); RDW 18.2 % (11.9-15.9); WHITE BLOOD COUNT 39.9 K/mm3 (4.0-10.0)
[2024-10-19] MEDS: SODIUM CHLORIDE 1,000 ML IV SCH (18:33)
[2024-10-19 18:47] LABS: CHLORIDE 106 mmol/L (98-107); POTASSIUM 5.8 mmol/L (3.5-5.1); SODIUM 139 mmol/L (136-145)
[2024-10-19 18:50] LABS: CALCIUM 8.6 mg/dL (8.5-10.1)
[2024-10-19 18:51] LABS: ALBUMIN 1.7 g/dl (3.4-5.0); ANION GAP 17 mmol/L (4-13); CO2 17 mmol/L (21-32); GLUCOSE,RANDOM 145 mg/dL (74-106)
[2024-10-19 18:54] LABS: MAGNESIUM 3.2 mg/dL (1.8-2.4); PHOSPHOROUS 8.2 mg/dL (2.5-4.9)
[2024-10-19 18:55] LABS: SGOT/AST 37 U/L (15-37); SGPT/ALT 90 U/L (13-61)
[2024-10-19 18:57] LABS: BILIRUBIN,TOTAL 0.4 mg/dL (0.2-1); CREATININE 4.6 mg/dL (0.55-1.3); IRON SERUM 50 ug/dL (50-175); TOT PROT 5.6 g/dl (6.4-8.2); TOTAL IRON BINDING CAPACITY 169 ug/dL (250-450)
[2024-10-19 19:22] LABS: ANISOCYTOSIS 0; HELMET CELLS 0; HOWELL-JOLLY BODIES 0; MACROCYTOSIS 0; OVALOCYTE 0; ROULEAU 0; SICKELED CELLS 0; TARGET CELLS 0; TEAR DROP CELLS 0; TOXIC GRANULATION 0
[2024-10-19] MEDS: INSULIN REGULAR HUMAN 100 UNITS/ML *VIAL IVPUSH ONE (19:30)
[2024-10-19] MEDS: DEXTROSE 50%-WATER - 25 GM/50 ML VIAL IVPUSH ONE (19:31)
[2024-10-19 19:57] LABS: ALK PHOS 336 U/L (45-117); BLOOD UREA NITROGEN 161.4 mg/dL (7-18)
[2024-10-19] MEDS: LACTATED RINGERS SOLUTION 1,000 ML/1,000 ML INFUS.BAG IV SCH (20:10)
[2024-10-19] MEDS ORDERED: DEXTROSE 50%-WATER 25 GM/50 ML DISP.SYRIN ONE (20:26)
[2024-10-19] MEDS ORDERED: VANCOMYCIN/WATER FOR INJ (PEG) 1,000 MG/200 ML BAG IVPB SCH (22:00)
[2024-10-20 07:19] LABS: HEMATOCRIT 34.7 % (35.4-49); HEMOGLOBIN 11.3 GM/dL (11.7-16.9); MCHC 32.6 g/dl (32.0-35.9); MEAN PLT VOLUME 8.2 fl (7.5-11.1); PLATELET COUNT 470 10^3/uL (134-434); RBC 4.18 M/mm3 (4.00-5.60); RDW 18.3 % (11.9-15.9)
[2024-10-20 07:41] LABS: CHLORIDE 110 mmol/L (98-107); POTASSIUM 5.4 mmol/L (3.5-5.1); SODIUM 140 mmol/L (136-145)
[2024-10-20 07:44] LABS: CALCIUM 8.1 mg/dL (8.5-10.1)
[2024-10-20 07:45] LABS: ANION GAP 11 mmol/L (4-13); CO2 19 mmol/L (21-32); GLUCOSE,RANDOM 120 mg/dL (74-106)
[2024-10-20 07:48] LABS: CREATININE 4.6 mg/dL (0.55-1.3)
[2024-10-20 08:38] LABS: WHITE BLOOD COUNT 38.6 K/mm3 (4.0-10.0)
[2024-10-20] MEDS ORDERED: VANCOMYCIN 500 MG VIAL (RESTRICTED TO ID ONLY) RC SCH (09:00)
[2024-10-20 09:29] LABS: ANISOCYTOSIS 3+; MACROCYTOSIS 0
[2024-10-20] MEDS: VANCOMYCIN 500 MG in DEXTROSE 5%-WATER - 100 ML IVPB SCH ×2 (10:04)
[2024-10-20] MEDS: VANCOMYCIN ORAL SOLUTION 125 MG/2.5 ML GT SCH (12:44)
[2024-10-20 14:56] LABS: BILIRUBIN,DIRECT 0.2 mg/dL (0.0-0.2); SGOT/AST 32 U/L (15-37); SGPT/ALT 75 U/L (13-61)
[2024-10-20 14:57] LABS: BILIRUBIN,TOTAL 0.4 mg/dL (0.2-1)
[2024-10-20 14:59] LABS: ALK PHOS 317 U/L (45-117)
[2024-10-20 15:03] LABS: ALBUMIN 1.6 g/dl (3.4-5.0)
[2024-10-20] MEDS: SODIUM CHLORIDE 500 ML IV STA (22:12)
[2024-10-20] MEDS: SODIUM ZIRCONIUM CYCLOSILICATE (LOKELMA) 5 GM PACKET PO SCH (22:13)
[2024-10-21 07:21] LABS: HEMATOCRIT 29.8 % (35.4-49); HEMOGLOBIN 9.4 GM/dL (11.7-16.9); MCH 26.6 pg (25.7-33.7); MCHC 31.6 g/dl (32.0-35.9); MEAN CELL VOLUME 84.3 fl (80-96); PLATELET COUNT 391 10^3/uL (134-434); RBC 3.53 M/mm3 (4.00-5.60); RDW 18.7 % (11.9-15.9)
[2024-10-21 07:38] LABS: CHLORIDE 110 mmol/L (98-107); POTASSIUM 4.8 mmol/L (3.5-5.1); SODIUM 142 mmol/L (136-145)
[2024-10-21 07:41] LABS: CALCIUM 8.3 mg/dL (8.5-10.1)
[2024-10-21 07:43] LABS: ALBUMIN 1.6 g/dl (3.4-5.0); ANION GAP 14 mmol/L (4-13); CO2 18 mmol/L (21-32); GLUCOSE,RANDOM 179 mg/dL (74-106)
[2024-10-21 07:45] LABS: SGOT/AST 26 U/L (15-37); SGPT/ALT 55 U/L (13-61)
[2024-10-21 07:46] LABS: BILIRUBIN,TOTAL 0.3 mg/dL (0.2-1); CREATININE 4.8 mg/dL (0.55-1.3); TOT PROT 4.6 g/dl (6.4-8.2)
[2024-10-21 07:47] LABS: PHOSPHOROUS 8.1 mg/dL (2.5-4.9)
[2024-10-21 07:49] LABS: ALK PHOS 264 U/L (45-117)
[2024-10-21 08:11] LABS: BLOOD UREA NITROGEN 167.4 mg/dL (7-18)
[2024-10-21 09:19] LABS: ANISOCYTOSIS 0; HELMET CELLS 0; HOWELL-JOLLY BODIES 0; MACROCYTOSIS 0; OVALOCYTE 0; ROULEAU 0; SICKELED CELLS 0; TARGET CELLS 0; TEAR DROP CELLS 0; TOXIC GRANULATION 0
[2024-10-21] MEDS: SODIUM CHLORIDE 500 ML IV STA (10:55)
[2024-10-21 13:01] LABS: CREATININE 4.9 mg/dL (0.55-1.3)
[2024-10-21] MEDS: LACTATED RINGERS SOLUTION 1,000 ML/1,000 ML INFUS.BAG IV SCH (16:14)
[2024-10-21] MEDS: VANCOMYCIN PREMIX 1.5 GM 1,500 MG/300 ML BAG IVPB ONE (17:51)
[2024-10-22 09:39] LABS: HEMATOCRIT 31.3 % (35.4-49); HEMOGLOBIN 9.6 GM/dL (11.7-16.9); MCH 26.1 pg (25.7-33.7); MCHC 30.8 g/dl (32.0-35.9); MEAN CELL VOLUME 84.7 fl (80-96); MEAN PLT VOLUME 8.1 fl (7.5-11.1); PLATELET COUNT 387 10^3/uL (134-434); RDW 18.4 % (11.9-15.9); WHITE BLOOD COUNT 22.1 K/mm3 (4.0-10.0)
[2024-10-22 09:58] LABS: CHLORIDE 112 mmol/L (98-107); POTASSIUM 4.5 mmol/L (3.5-5.1); SODIUM 146 mmol/L (136-145)
[2024-10-22 10:03] LABS: ALBUMIN 1.5 g/dl (3.4-5.0); ANION GAP 18 mmol/L (4-13); CO2 16 mmol/L (21-32); MAGNESIUM 2.9 mg/dL (1.8-2.4)
[2024-10-22 10:04] LABS: GLUCOSE,RANDOM 198 mg/dL (74-106)
[2024-10-22 10:05] LABS: SGPT/ALT 54 U/L (13-61)
[2024-10-22 10:06] LABS: CREATININE 4.7 mg/dL (0.55-1.3); PHOSPHOROUS 7.3 mg/dL (2.5-4.9); SGOT/AST 39 U/L (15-37)
[2024-10-22 10:07] LABS: BILIRUBIN,TOTAL 0.3 mg/dL (0.2-1); TOT PROT 4.5 g/dl (6.4-8.2)
[2024-10-22 10:20] LABS: ALK PHOS 344 U/L (45-117); BLOOD UREA NITROGEN > 150.0 mg/dL (7-18)
[2024-10-22 11:59] LABS: ANISOCYTOSIS 1+; MACROCYTOSIS 1+
[2024-10-22] MEDS: SODIUM CHLORIDE 500 ML IV STA (12:34)
[2024-10-22] MEDS: VANCOMYCIN PREMIX 1.5 GM 1,500 MG/300 ML BAG IVPB ONE (15:50)
[2024-10-23 10:45] LABS: CHLORIDE 113 mmol/L (98-107); POTASSIUM 4.3 mmol/L (3.5-5.1); SODIUM 145 mmol/L (136-145)
[2024-10-23 10:46] LABS: ALBUMIN 1.7 g/dl (3.4-5.0)
[2024-10-23 10:47] LABS: ANION GAP 14 mmol/L (4-13); CALCIUM 8.1 mg/dL (8.5-10.1); CO2 19 mmol/L (21-32)
[2024-10-23 10:48] LABS: GLUCOSE,RANDOM 220 mg/dL (74-106); MAGNESIUM 2.9 mg/dL (1.8-2.4)
[2024-10-23 10:50] LABS: CREATININE 4.6 mg/dL (0.55-1.3); SGPT/ALT 72 U/L (13-61)
[2024-10-23 10:51] LABS: PHOSPHOROUS 7.2 mg/dL (2.5-4.9)
[2024-10-23 10:52] LABS: BILIRUBIN,TOTAL 0.4 mg/dL (0.2-1); TOT PROT 4.8 g/dl (6.4-8.2)
[2024-10-23 10:55] LABS: ALK PHOS 386 U/L (45-117)
[2024-10-23 10:56] LABS: SGOT/AST 68 U/L (15-37)
[2024-10-23] MEDS: MEROPENEM-0.9% SODIUM CHLORIDE 500 MG/50 ML BAG IVPB SCH (11:01)
[2024-10-23 11:12] LABS: HEMATOCRIT 32.9 % (35.4-49); HEMOGLOBIN 10.3 GM/dL (11.7-16.9); MCH 26.9 pg (25.7-33.7); MCHC 31.2 g/dl (32.0-35.9); MEAN CELL VOLUME 86.1 fl (80-96); MEAN PLT VOLUME 8.2 fl (7.5-11.1); PLATELET COUNT 350 10^3/uL (134-434); RBC 3.83 M/mm3 (4.00-5.60); RDW 18.6 % (11.9-15.9); WHITE BLOOD COUNT 21.7 K/mm3 (4.0-10.0)
[2024-10-23 11:42] LABS: BLOOD UREA NITROGEN 154.8 mg/dL (7-18)
[2024-10-23] MEDS: INSULIN ASPART SLIDING SCALE (NOVOLOG) 1 VIAL SQ SCH (12:03)
[2024-10-23 13:30] LABS: ANISOCYTOSIS 1+; MACROCYTOSIS 0
[2024-10-24 08:32] LABS: CHLORIDE 115 mmol/L (98-107); POTASSIUM 4.3 mmol/L (3.5-5.1); SODIUM 145 mmol/L (136-145)
[2024-10-24 08:34] LABS: ALBUMIN 1.5 g/dl (3.4-5.0); ANION GAP 14 mmol/L (4-13); CALCIUM 7.8 mg/dL (8.5-10.1); CO2 16 mmol/L (21-32); GLUCOSE,RANDOM 227 mg/dL (74-106)
[2024-10-24 08:37] LABS: HEMATOCRIT 30.9 % (35.4-49); MCH 26.8 pg (25.7-33.7); MCHC 32.4 g/dl (32.0-35.9); MEAN PLT VOLUME 7.6 fl (7.5-11.1); PLATELET COUNT 346 10^3/uL (134-434); RBC 3.72 M/mm3 (4.00-5.60); RDW 18.5 % (11.9-15.9); WHITE BLOOD COUNT 18.5 K/mm3 (4.0-10.0)
[2024-10-24 08:37] LABS: CREATININE 4.2 mg/dL (0.55-1.3); SGPT/ALT 93 U/L (13-61)
[2024-10-24 08:38] LABS: SGOT/AST 102 U/L (15-37)
[2024-10-24 08:39] LABS: BILIRUBIN,TOTAL 0.4 mg/dL (0.2-1); TOT PROT 4.6 g/dl (6.4-8.2)
[2024-10-24 08:47] LABS: ALK PHOS 429 U/L (45-117); BLOOD UREA NITROGEN 137.1 mg/dL (7-18)
[2024-10-24] MEDS: INSULIN (LEVEMIR) 100 UNITS/ML UNITS SQ SCH (11:43)
[2024-10-24] MEDS: NYSTATIN POWDER 100,000 UNITS/GM - 15 GM TOPICAL POWDER TP SCH (12:39)
[2024-10-25 02:31] VITALS: BMI 25.9
[2024-10-25 08:57] LABS: HEMATOCRIT 33.1 % (35.4-49); HEMOGLOBIN 10.4 GM/dL (11.7-16.9); MCH 26.4 pg (25.7-33.7); MCHC 31.5 g/dl (32.0-35.9); MEAN CELL VOLUME 83.9 fl (80-96); MEAN PLT VOLUME 7.5 fl (7.5-11.1); PLATELET COUNT 353 10^3/uL (134-434); RBC 3.94 M/mm3 (4.00-5.60); RDW 18.8 % (11.9-15.9); WHITE BLOOD COUNT 21.5 K/mm3 (4.0-10.0)
[2024-10-25 09:10] LABS: CHLORIDE 114 mmol/L (98-107); POTASSIUM 3.9 mmol/L (3.5-5.1); SODIUM 146 mmol/L (136-145)
[2024-10-25 09:11] LABS: CALCIUM 8.1 mg/dL (8.5-10.1)
[2024-10-25 09:12] LABS: ANION GAP 13 mmol/L (4-13); BLOOD UREA NITROGEN 134.8 mg/dL (7-18); CO2 19 mmol/L (21-32); GLUCOSE,RANDOM 167 mg/dL (74-106)
[2024-10-25 09:49] LABS: ANISOCYTOSIS 0; HELMET CELLS 0; HOWELL-JOLLY BODIES 0; MACROCYTOSIS 0; OVALOCYTE 0; ROULEAU 0; SICKELED CELLS 0; TARGET CELLS 0; TEAR DROP CELLS 0; TOXIC GRANULATION 0
[2024-10-25] MEDS: ZINC SULFATE 220 MG CAPSULE (FP) PO SCH (10:48)
[2024-10-25] MEDS: LACTATED RINGERS SOLUTION 1,000 ML/1,000 ML INFUS.BAG IV SCH (15:53)
[2024-10-26 09:06] LABS: HEMATOCRIT 32.9 % (35.4-49); HEMOGLOBIN 10.1 GM/dL (11.7-16.9); MCH 26.1 pg (25.7-33.7); MCHC 30.7 g/dl (32.0-35.9); MEAN PLT VOLUME 7.3 fl (7.5-11.1); PLATELET COUNT 375 10^3/uL (134-434); RBC 3.87 M/mm3 (4.00-5.60); RDW 18.5 % (11.9-15.9); WHITE BLOOD COUNT 23.8 K/mm3 (4.0-10.0)
[2024-10-26 09:25] LABS: CHLORIDE 114 mmol/L (98-107); POTASSIUM 3.9 mmol/L (3.5-5.1); SODIUM 145 mmol/L (136-145)
[2024-10-26 09:28] LABS: ANION GAP 13 mmol/L (4-13); CALCIUM 8.2 mg/dL (8.5-10.1); CO2 18 mmol/L (21-32); GLUCOSE,RANDOM 160 mg/dL (74-106)
[2024-10-26 09:29] LABS: ALBUMIN 1.6 g/dl (3.4-5.0)
[2024-10-26 09:31] LABS: SGOT/AST 37 U/L (15-37); SGPT/ALT 58 U/L (13-61)
[2024-10-26 09:32] LABS: CREATININE 3.9 mg/dL (0.55-1.3)
[2024-10-26 09:33] LABS: BILIRUBIN,TOTAL 0.3 mg/dL (0.2-1); TOT PROT 4.9 g/dl (6.4-8.2)
[2024-10-26 10:00] LABS: ANISOCYTOSIS 2+; MACROCYTOSIS 1+
[2024-10-26 10:05] LABS: ALK PHOS 359 U/L (45-117)
[2024-10-26] MEDS: SODIUM CHLORIDE 0.45% 1,000 ML IV SCH (15:50)
[2024-10-27 07:43] LABS: BASO % 0.1 % (0-2.0); EOS % 0.9 % (0-4.5); HEMATOCRIT 28.6 % (35.4-49); MCH 26.5 pg (25.7-33.7); MCHC 31.6 g/dl (32.0-35.9); MEAN PLT VOLUME 7.3 fl (7.5-11.1); MONO % 4.9 % (3.8-10.2); NEUT % 79.1 % (42.8-82.8); PLATELET COUNT 368 10^3/uL (134-434); RDW 18.3 % (11.9-15.9); WHITE BLOOD COUNT 17.8 K/mm3 (4.0-10.0)
[2024-10-27 07:57] LABS: CHLORIDE 113 mmol/L (98-107); POTASSIUM 3.7 mmol/L (3.5-5.1); SODIUM 144 mmol/L (136-145)
[2024-10-27 08:03] LABS: CALCIUM 8.2 mg/dL (8.5-10.1)
[2024-10-27 08:04] LABS: ALBUMIN 1.6 g/dl (3.4-5.0); ANION GAP 9 mmol/L (4-13); CO2 21 mmol/L (21-32); GLUCOSE,RANDOM 140 mg/dL (74-106); MAGNESIUM 2.3 mg/dL (1.8-2.4)
[2024-10-27 08:06] LABS: SGOT/AST 28 U/L (15-37); SGPT/ALT 42 U/L (13-61)
[2024-10-27 08:07] LABS: CREATININE 3.6 mg/dL (0.55-1.3); PHOSPHOROUS 6.4 mg/dL (2.5-4.9)
[2024-10-27 08:08] LABS: BILIRUBIN,TOTAL 0.4 mg/dL (0.2-1); TOT PROT 4.7 g/dl (6.4-8.2)
[2024-10-27 08:44] LABS: ALK PHOS 288 U/L (45-117)
[2024-10-27] MEDS: SCOPOLAMINE HYDROBROMIDE 1 PATCH PATCH.TD72 TD SCH (09:10)
[2024-10-27] MEDS: ATORVASTATIN CA 40 MG TABLET (FP) GT SCH (21:22)
[2024-10-27] MEDS: GABAPENTIN 250 MG/5 ML ORAL SOLUTION, 470 ML BOTTLE GT SCH (21:22)
[2024-10-28 07:31] LABS: BASO % 0.2 % (0-2.0); HEMATOCRIT 28.1 % (35.4-49); HEMOGLOBIN 8.9 GM/dL (11.7-16.9); MCH 26.6 pg (25.7-33.7); MCHC 31.5 g/dl (32.0-35.9); MEAN CELL VOLUME 84.5 fl (80-96); MEAN PLT VOLUME 7.3 fl (7.5-11.1); NEUT % 76.8 % (42.8-82.8); PLATELET COUNT 400 10^3/uL (134-434); RBC 3.33 M/mm3 (4.00-5.60); RDW 18.6 % (11.9-15.9); WHITE BLOOD COUNT 15.5 K/mm3 (4.0-10.0)
[2024-10-28 07:45] LABS: CHLORIDE 114 mmol/L (98-107); POTASSIUM 3.7 mmol/L (3.5-5.1); SODIUM 146 mmol/L (136-145)
[2024-10-28 07:47] LABS: ALBUMIN 1.5 g/dl (3.4-5.0); ANION GAP 12 mmol/L (4-13); CALCIUM 8.2 mg/dL (8.5-10.1); CO2 20 mmol/L (21-32)
[2024-10-28 07:48] LABS: GLUCOSE,RANDOM 120 mg/dL (74-106); MAGNESIUM 2.1 mg/dL (1.8-2.4)
[2024-10-28 07:50] LABS: SGOT/AST 27 U/L (15-37); SGPT/ALT 35 U/L (13-61)
[2024-10-28 07:51] LABS: CREATININE 3.3 mg/dL (0.55-1.3); PHOSPHOROUS 6.4 mg/dL (2.5-4.9)
[2024-10-28 07:52] LABS: BILIRUBIN,TOTAL 0.3 mg/dL (0.2-1); TOT PROT 4.6 g/dl (6.4-8.2)
[2024-10-28 08:02] LABS: ALK PHOS 251 U/L (45-117); BLOOD UREA NITROGEN 131.7 mg/dL (7-18)
[2024-10-28] MEDS ORDERED: ZINC GLUCONATE 50 MG GT SCH (10:00)
[2024-10-28] MEDS: ASPIRIN 81 MG CHEWABLE TABLETS GT SCH (11:39)
[2024-10-28] MEDS: LACTOBACILLUS ACIDOPHILUS 1 TABLET GT SCH (11:40)
[2024-10-28] MEDS: SODIUM CHLORIDE 0.45% 1,000 ML IV SCH (11:47)
[2024-10-29 08:42] LABS: CHLORIDE 116 mmol/L (98-107); POTASSIUM 4.1 mmol/L (3.5-5.1); SODIUM 149 mmol/L (136-145)
[2024-10-29 08:45] LABS: CALCIUM 7.9 mg/dL (8.5-10.1)
[2024-10-29 08:46] LABS: ALBUMIN 1.5 g/dl (3.4-5.0); ANION GAP 14 mmol/L (4-13); CO2 19 mmol/L (21-32); GLUCOSE,RANDOM 133 mg/dL (74-106); MAGNESIUM 2.1 mg/dL (1.8-2.4)
[2024-10-29 08:49] LABS: PHOSPHOROUS 6.8 mg/dL (2.5-4.9); SGOT/AST 29 U/L (15-37); SGPT/ALT 37 U/L (13-61)
[2024-10-29 08:50] LABS: BILIRUBIN,TOTAL 0.3 mg/dL (0.2-1)
[2024-10-29 08:51] LABS: TOT PROT 4.7 g/dl (6.4-8.2)
[2024-10-29 08:52] LABS: ALK PHOS 234 U/L (45-117)
[2024-10-29 09:02] LABS: BLOOD UREA NITROGEN 126.5 mg/dL (7-18)
[2024-10-29 10:58] LABS: BASO % 0.2 % (0-2.0); EOS % 1.2 % (0-4.5); HEMATOCRIT 26.4 % (35.4-49); HEMOGLOBIN 8.2 GM/dL (11.7-16.9); LYMPH % 16.4 % (8-40); MCH 25.8 pg (25.7-33.7); MCHC 31.1 g/dl (32.0-35.9); MEAN CELL VOLUME 83.1 fl (80-96); MEAN PLT VOLUME 6.9 fl (7.5-11.1); MONO % 4.4 % (3.8-10.2); NEUT % 77.8 % (42.8-82.8); PLATELET COUNT 423 10^3/uL (134-434); RBC 3.17 M/mm3 (4.00-5.60); RDW 18.2 % (11.9-15.9); WHITE BLOOD COUNT 15.9 K/mm3 (4.0-10.0)
[2024-10-29] MEDS: VITAMIN B COMP W-C 1 EA TABLET (NEPHRO-VITE) PO SCH (14:54)
[2024-10-29] MEDS: DEXTROSE 5%-WATER - 1,000 ML IV SCH (17:16)
[2024-10-29] MEDS: VANCOMYCIN 500 MG in DEXTROSE 5%-WATER - 100 ML IVPB ONE (17:16)
[2024-10-29] MEDS: FAMOTIDINE 20 MG/50 ML IVPB 20 MG/50 ML MG IVPB SCH (17:26)
[2024-10-29 17:36] LABS: HEMATOCRIT 27.7 % (35.4-49); HEMOGLOBIN 8.7 GM/dL (11.7-16.9); MCH 26.3 pg (25.7-33.7); MCHC 31.4 g/dl (32.0-35.9); MEAN CELL VOLUME 83.8 fl (80-96); MEAN PLT VOLUME 6.8 fl (7.5-11.1); PLATELET COUNT 448 10^3/uL (134-434); RBC 3.31 M/mm3 (4.00-5.60); RDW 18.2 % (11.9-15.9); WHITE BLOOD COUNT 17.5 K/mm3 (4.0-10.0)
[2024-10-29] MEDS: BANATROL PLUS POWDER PACKET PO SCH (22:34)
[2024-10-30] MEDS: BANATROL PLUS POWDER PACKET GT SCH (06:40)
[2024-10-30 07:32] LABS: HEMOGLOBIN 8.3 GM/dL (11.7-16.9); MCH 26.6 pg (25.7-33.7); MEAN CELL VOLUME 83.2 fl (80-96); MEAN PLT VOLUME 7.3 fl (7.5-11.1); PLATELET COUNT 434 10^3/uL (134-434); RBC 3.12 M/mm3 (4.00-5.60); RDW 17.9 % (11.9-15.9); WHITE BLOOD COUNT 11.8 K/mm3 (4.0-10.0)
[2024-10-30 07:36] LABS: CHLORIDE 118 mmol/L (98-107); POTASSIUM 3.6 mmol/L (3.5-5.1); SODIUM 146 mmol/L (136-145)
[2024-10-30 07:39] LABS: CALCIUM 8.1 mg/dL (8.5-10.1)
[2024-10-30 07:40] LABS: ALBUMIN 1.5 g/dl (3.4-5.0); ANION GAP 8 mmol/L (4-13); CO2 21 mmol/L (21-32); GLUCOSE,RANDOM 122 mg/dL (74-106)
[2024-10-30 07:43] LABS: CREATININE 2.6 mg/dL (0.55-1.3); SGOT/AST 34 U/L (15-37); SGPT/ALT 36 U/L (13-61)
[2024-10-30 07:45] LABS: BLOOD UREA NITROGEN 116.4 mg/dL (7-18)
[2024-10-30 07:46] LABS: BILIRUBIN,TOTAL 0.4 mg/dL (0.2-1)
[2024-10-30 07:47] LABS: ALK PHOS 219 U/L (45-117)
[2024-10-30] MEDS: DEXTROSE 5%-WATER - 1,000 ML IV SCH (15:00)
[2024-10-30] MEDS: SODIUM CHLORIDE 0.45% 1,000 ML IV SCH (19:08)
[2024-10-31 07:56] LABS: HEMATOCRIT 25.5 % (35.4-49); HEMOGLOBIN 8.2 GM/dL (11.7-16.9); MCH 26.8 pg (25.7-33.7); MEAN CELL VOLUME 83.9 fl (80-96); MEAN PLT VOLUME 6.9 fl (7.5-11.1); PLATELET COUNT 448 10^3/uL (134-434); RBC 3.04 M/mm3 (4.00-5.60); RDW 18.1 % (11.9-15.9); WHITE BLOOD COUNT 9.8 K/mm3 (4.0-10.0)
[2024-10-31 08:14] LABS: CHLORIDE 118 mmol/L (98-107); POTASSIUM 3.3 mmol/L (3.5-5.1); SODIUM 146 mmol/L (136-145)
[2024-10-31 08:30] LABS: ALBUMIN 1.6 g/dl (3.4-5.0); ANION GAP 8 mmol/L (4-13); CALCIUM 8.2 mg/dL (8.5-10.1); CO2 20 mmol/L (21-32); GLUCOSE,RANDOM 127 mg/dL (74-106)
[2024-10-31 08:33] LABS: BLOOD UREA NITROGEN 105.7 mg/dL (7-18); CREATININE 2.3 mg/dL (0.55-1.3); SGOT/AST 53 U/L (15-37); SGPT/ALT 44 U/L (13-61)
[2024-10-31 08:36] LABS: BILIRUBIN,TOTAL 0.2 mg/dL (0.2-1); TOT PROT 5.1 g/dl (6.4-8.2)
[2024-10-31 08:41] LABS: ALK PHOS 261 U/L (45-117)
[2024-10-31] MEDS: POTASSIUM CHLORIDE ORAL LIQUID 20 MEQ/15 ML NGT ONE (15:08)
[2024-11-01 08:32] LABS: HEMATOCRIT 25.4 % (35.4-49); HEMOGLOBIN 8.2 GM/dL (11.7-16.9); MCH 26.8 pg (25.7-33.7); MCHC 32.5 g/dl (32.0-35.9); MEAN CELL VOLUME 82.7 fl (80-96); MEAN PLT VOLUME 6.7 fl (7.5-11.1); PLATELET COUNT 445 10^3/uL (134-434); POTASSIUM 3.5 mmol/L (3.5-5.1); RBC 3.07 M/mm3 (4.00-5.60); RDW 18.1 % (11.9-15.9); WHITE BLOOD COUNT 10.8 K/mm3 (4.0-10.0)
[2024-11-01 08:40] LABS: ALBUMIN 1.7 g/dl (3.4-5.0)
[2024-11-01 08:42] LABS: MAGNESIUM 1.8 mg/dL (1.8-2.4)
[2024-11-01 08:46] LABS: BILIRUBIN,TOTAL 0.3 mg/dL (0.2-1); TOT PROT 5.4 g/dl (6.4-8.2)
[2024-11-01] MEDS: VANCOMYCIN/WATER FOR INJ (PEG) 1,000 MG/200 ML BAG IVPB ONE (14:14)
[2024-11-02 17:41] LABS: POTASSIUM 3.7 mmol/L (3.5-5.1)
[2024-11-02 17:42] LABS: BLOOD UREA NITROGEN 83.5 mg/dL (7-18)
[2024-11-02 17:43] LABS: ALBUMIN 1.8 g/dl (3.4-5.0); CALCIUM 8.2 mg/dL (8.5-10.1)
[2024-11-02 17:48] LABS: BILIRUBIN,TOTAL 0.2 mg/dL (0.2-1); TOT PROT 5.8 g/dl (6.4-8.2)
[2024-11-04 09:41] LABS: POTASSIUM 3.4 mmol/L (3.5-5.1)
[2024-11-04 09:48] LABS: CALCIUM 8.1 mg/dL (8.5-10.1)
[2024-11-04 09:49] LABS: BLOOD UREA NITROGEN 68.9 mg/dL (7-18)
[2024-11-04 09:52] LABS: CREATININE 1.6 mg/dL (0.55-1.3)
[2024-11-04] MEDS: POTASSIUM CHLORIDE ORAL LIQUID 20 MEQ/15 ML PO ONE (12:01)
[2024-11-04 12:03] LABS: HEMATOCRIT 23.1 % (35.4-49); HEMOGLOBIN 7.4 GM/dL (11.7-16.9); MCH 26.8 pg (25.7-33.7); MEAN CELL VOLUME 83.8 fl (80-96); MEAN PLT VOLUME 7.5 fl (7.5-11.1); PLATELET COUNT 353 10^3/uL (134-434); RBC 2.75 M/mm3 (4.00-5.60); RDW 18.4 % (11.9-15.9)
[2024-11-04 22:57] VITALS: RESP 18
[2024-11-05 09:17] VITALS: TEMP 98.1
[2024-11-05 15:50] VITALS: BP 161/81; PULSE 103
== END 2024-11-05 15:04 | DRG 871 ==
LOC: JER 13:40 → JERBED 20:09 → J8W 10-19 14:57 → J4S 10-20 02:25
PROVIDERS: ADMIT Internal Medicine; ATTEND Internal Medicine
PROC: 30233N1 Transfusion of Nonautologous Red Blood Cells into Peripheral Vein, Percutaneous Approach (ICD-10-PCS; principal; 2024-10-18)
DX: A41.59 Other Gram-negative sepsis (principal); L89.153 Pressure ulcer of sacral region, stage 3; R53.2 Functional quadriplegia; N17.0 Acute kidney failure with tubular necrosis; J96.10 Chronic respiratory failure, unspecified whether with hypoxia or hypercapnia; N39.0 Urinary tract infection, site not specified; E87.0 Hyperosmolality and hypernatremia; A04.72 Enterocolitis due to Clostridium difficile, not specified as recurrent; R18.8 Other ascites; E46 Unspecified protein-calorie malnutrition; E87.20 Acidosis, unspecified; I69.351 Hemiplegia and hemiparesis following cerebral infarction affecting right dominant side; I12.9 Hypertensive chronic kidney disease with stage 1 through stage 4 chronic kidney disease, or unspecified chronic kidney disease; N18.32 Chronic kidney disease, stage 3b; D64.9 Anemia, unspecified; Z93.1 Gastrostomy status; Z93.0 Tracheostomy status; R65.20 Severe sepsis without septic shock; E87.5 Hyperkalemia; A41.02 Sepsis due to Methicillin resistant Staphylococcus aureus; K21.9 Gastro-esophageal reflux disease without esophagitis; R33.9 Retention of urine, unspecified
CPT/HCPCS: 36415; 36430; 71045-TC-FY; 74018-TC-FY; 74176-TC; 76705-TC; 76775-TC; 80048; 80053; 80076; 81003; 82272; 82550; 82565; 82728; 82803; 82962; 83540; 83550; 83605; 83735; 84100; 84300; 84484; 85025; 85027; 85610; 85730; 86850; 86900; 86901; 86922; 87040; 87070; 87077; 87086; 87186; 87205; 87324; 87449; 93005; 93010; 93308; 93971; 99291; G0480; P9058

== ENCOUNTER 2024-11-20 13:23 | Inpatient (IN) | payer OTHER ==
[2024-11-20 15:40] LABS: URINE APPEARANCE CLOUDY; URINE BILIRUBIN NEGATIVE (NEGATIVE); URINE COLOR DK YELLOW; URINE GLUCOSE (UA) NEGATIVE (NEGATIVE); URINE KETONE NEGATIVE (NEGATIVE); URINE LEUK ESTERASE 2+ (NEGATIVE); URINE NITRITE NEGATIVE (NEGATIVE); URINE PROTEIN 2+ (NEGATIVE); URINE UROBILINOGEN 0.2 mg/dL (0.2-1.0)
[2024-11-20] MEDS: LACTATED RINGERS SOLUTION 1000 ML INFUS.BAG IV ONE (16:20)
[2024-11-20 16:26] LABS: VENOUS BASE EXCESS 4.5 mmol/L (-2-2); VENOUS PCO2 52.5 mmHg (38-52)
[2024-11-20 16:30] LABS: EOS % 0.1 % (0-4.5); HEMATOCRIT 31.1 % (35.4-49); HEMOGLOBIN 9.9 GM/dL (11.7-16.9); LYMPH % 18.1 % (8-40); MCH 26.8 pg (25.7-33.7); MCHC 31.8 g/dl (32.0-35.9); MEAN CELL VOLUME 84.4 fl (80-96); MEAN PLT VOLUME 7.3 fl (7.5-11.1); MONO % 5.8 % (3.8-10.2); PLATELET COUNT 717 10^3/uL (134-434); RBC 3.68 M/mm3 (4.00-5.60); RDW 18.2 % (11.9-15.9); WHITE BLOOD COUNT 15.2 K/mm3 (4.0-10.0)
[2024-11-20 16:36] LABS: EPI CELLS 2.6 /uL (0-25.1); HYALINE CASTS 1.64 /uL (0-3.1); URINE BACTERIA 118.1 /uL (0-1359); URINE WBC 879.9 /uL (0-25.8)
[2024-11-20 16:38] LABS: INR 1.04 (0.83-1.09); PROTHROMBIN TIME (PATIENT) 11.9 SEC (9.7-13.0)
[2024-11-20 16:41] LABS: ACTIVATED PTT 26.3 SECONDS (25.2-36.5)
[2024-11-20 16:52] LABS: CALCIUM 8.6 mg/dL (8.5-10.1); CHLORIDE 106 mmol/L (98-107); GLUCOSE,RANDOM 134 mg/dL (74-106); POTASSIUM 4.4 mmol/L (3.5-5.1); SODIUM 144 mmol/L (136-145)
[2024-11-20 16:54] LABS: ALBUMIN 1.9 g/dl (3.4-5.0); ANION GAP 9 mmol/L (4-13); CO2 30 mmol/L (21-32)
[2024-11-20 16:56] LABS: CREATININE 2.1 mg/dL (0.55-1.3); SGOT/AST 92 U/L (15-37); SGPT/ALT 169 U/L (13-61)
[2024-11-20 16:58] LABS: BILIRUBIN,TOTAL 0.4 mg/dL (0.2-1); TOT PROT 6.6 g/dl (6.4-8.2)
[2024-11-20 17:00] LABS: ALK PHOS 456 U/L (45-117)
[2024-11-20 17:05] LABS: BLOOD UREA NITROGEN 110.1 mg/dL (7-18)
[2024-11-20 17:06] LABS: LACTIC ACID 2.5 mmol/L (0.4-2.0)
[2024-11-20] MEDS ORDERED: VANCOMYCIN 1 GM PREMIX (F) 1 GM/200 ML BAG ONE (17:45)
[2024-11-20] MEDS ORDERED: MEROPENEM-0.9% SODIUM CHLORIDE 1 GM/50 ML BAG IVPB ONE (17:50)
[2024-11-20] MEDS: MEROPENEM 1 GM in DEXTROSE 5%-WATER 100 ML IVPB ONE (17:58)
[2024-11-20] MEDS ORDERED: VANCOMYCIN/WATER 1250 MG 1,250 MG/250 ML BAG IVPB ONE (18:27)
[2024-11-20] MEDS: VANCOMYCIN 1,000 MG in DEXTROSE 5%-WATER - 250 ML IVPB ONE (18:32)
[2024-11-20] MEDS: SODIUM CHLORIDE 0.9% 500 ML INFUS.BAG IV ONE (19:41)
[2024-11-20 19:43] LABS: HEMATOCRIT 22.8 % (35.4-49); HEMOGLOBIN 7.1 GM/dL (11.7-16.9); MCH 26.3 pg (25.7-33.7); MCHC 30.9 g/dl (32.0-35.9); MEAN CELL VOLUME 84.9 fl (80-96); PLATELET COUNT 574 10^3/uL (134-434); RBC 2.69 M/mm3 (4.00-5.60); RDW 18.1 % (11.9-15.9); WHITE BLOOD COUNT 15.4 K/mm3 (4.0-10.0)
[2024-11-20 20:29] LABS: ANISOCYTOSIS 3+; MACROCYTOSIS 0
[2024-11-21] MEDS: SCOPOLAMINE HYDROBROMIDE 1 PATCH PATCH.TD72 TD SCH (02:47)
[2024-11-21] MEDS ORDERED: MEROPENEM 500 MG VIAL (RESTRICTED TO ID) IVPB ONE (05:09)
[2024-11-21] MEDS: MEROPENEM 500 MG in DEXTROSE 5%-WATER 100 ML IVPB SCH (05:12)
[2024-11-21] MEDS: SODIUM CHLORIDE 1,000 ML IV SCH (05:12)
[2024-11-21] MEDS ORDERED: VANCOMYCIN ORAL SOLUTION 125 MG/2.5 ML PO SCH (06:00)
[2024-11-21 06:42] LABS: BASO % 0.1 % (0-2.0); EOS % 0.1 % (0-4.5); HEMATOCRIT 23.4 % (35.4-49); HEMOGLOBIN 7.5 GM/dL (11.7-16.9); LYMPH % 16.3 % (8-40); MCH 27.7 pg (25.7-33.7); MCHC 32.2 g/dl (32.0-35.9); MEAN CELL VOLUME 86.1 fl (80-96); MEAN PLT VOLUME 7.8 fl (7.5-11.1); MONO % 4.8 % (3.8-10.2); NEUT % 78.7 % (42.8-82.8); PLATELET COUNT 547 10^3/uL (134-434); RBC 2.72 M/mm3 (4.00-5.60); RDW 18.1 % (11.9-15.9); WHITE BLOOD COUNT 13.6 K/mm3 (4.0-10.0)
[2024-11-21 06:51] LABS: POTASSIUM 4.3 mmol/L (3.5-5.1)
[2024-11-21] MEDS: VANCOMYCIN ORAL SOLUTION 125 MG/2.5 ML GT SCH (06:52)
[2024-11-21 06:55] LABS: ALBUMIN 1.7 g/dl (3.4-5.0); BLOOD UREA NITROGEN 98.1 mg/dL (7-18); CALCIUM 7.8 mg/dL (8.5-10.1); MAGNESIUM 2.5 mg/dL (1.8-2.4)
[2024-11-21 06:58] LABS: CREATININE 1.7 mg/dL (0.55-1.3)
[2024-11-21 06:59] LABS: PHOSPHOROUS 5.5 mg/dL (2.5-4.9)
[2024-11-21 07:00] LABS: BILIRUBIN,TOTAL 0.4 mg/dL (0.2-1); TOT PROT 5.7 g/dl (6.4-8.2)
[2024-11-21] MEDS ORDERED: VITAMIN B COMP W-C 1 EA TABLET (NEPHRO-VITE) PO SCH (10:00)
[2024-11-21] MEDS ORDERED: ZINC SULFATE 220 MG CAPSULE (FP) PO SCH (10:00)
[2024-11-21] MEDS ORDERED: ASPIRIN 81 MG CHEWABLE TABLETS GT SCH (10:00)
[2024-11-21] MEDS: LOSARTAN POTASSIUM 50 MG TABLET GT SCH (10:17)
[2024-11-21] MEDS: CHOLECALCIFEROL (VIT D3) 1,000 UNIT (25 MCG) TABLET GT SCH (10:17)
[2024-11-21] MEDS: LACTOBACILLUS ACIDOPHILUS 1 TABLET GT SCH (10:17)
[2024-11-21] MEDS: VITAMIN B COMP W-C 1 EA TABLET (NEPHRO-VITE) GT SCH (10:17)
[2024-11-21] MEDS: ZINC SULFATE 220 MG CAPSULE (FP) GT SCH (10:17)
[2024-11-21] MEDS: AMINO ACIDS/PROTEIN HYDROLYS 30 ML LIQUID.PKT GT SCH (10:17)
[2024-11-21] MEDS: ASCORBIC ACID 500 MG/5 ML UNIT DOSE CUP GT SCH (10:17)
[2024-11-21] MEDS: MEROPENEM-0.9% SODIUM CHLORIDE 1 GM/50 ML BAG IVPB SCH (16:26)
[2024-11-21] MEDS: CLOTRIMAZOLE 1% 10 ML TOPICAL SOLUTION TP SCH (16:49)
[2024-11-21] MEDS: NYSTATIN POWDER 100,000 UNITS/GM - 15 GM TOPICAL POWDER TP SCH (16:49)
[2024-11-21] MEDS ORDERED: MEROPENEM 500 MG PUSH 500 MG/10 ML DISP.SYRIN IVPB SCH (17:00)
[2024-11-21] MEDS: CLOTRIMAZOLE 1%TOPICAL SOLUTION 30 ML BOTTLE TP SCH (18:06)
[2024-11-21] MEDS: VANCOMYCIN 1 GM PREMIX (F) 1 GM/200 ML BAG IVPB SCH (18:28)
[2024-11-21] MEDS: VANCOMYCIN/WATER FOR INJ (PEG) 1 GM/200 ML BAG IVPB SCH (19:58)
[2024-11-21] MEDS: ATORVASTATIN CA 40 MG TABLET (FP) GT SCH (22:51)
[2024-11-21] MEDS: FIDAXOMICIN 200 MG TABLET PO SCH (22:51)
[2024-11-21] MEDS: GABAPENTIN 250 MG/5 ML ORAL SOLUTION, 470 ML BOTTLE GT SCH (22:52)
[2024-11-22 10:25] LABS: HEMATOCRIT 23.1 % (35.4-49); HEMOGLOBIN 7.3 GM/dL (11.7-16.9); MCH 27.8 pg (25.7-33.7); MCHC 31.7 g/dl (32.0-35.9); MEAN CELL VOLUME 87.9 fl (80-96); MEAN PLT VOLUME 7.4 fl (7.5-11.1); PLATELET COUNT 543 10^3/uL (134-434); RBC 2.62 M/mm3 (4.00-5.60); RDW 18.3 % (11.9-15.9); WHITE BLOOD COUNT 15.4 K/mm3 (4.0-10.0)
[2024-11-22 10:40] LABS: POTASSIUM 4.2 mmol/L (3.5-5.1)
[2024-11-22 10:52] LABS: ALBUMIN 1.7 g/dl (3.4-5.0); CALCIUM 7.8 mg/dL (8.5-10.1); MAGNESIUM 2.1 mg/dL (1.8-2.4)
[2024-11-22 10:53] LABS: BLOOD UREA NITROGEN 71.1 mg/dL (7-18)
[2024-11-22 10:55] LABS: CREATININE 1.2 mg/dL (0.55-1.3)
[2024-11-22 10:57] LABS: BILIRUBIN,TOTAL 0.4 mg/dL (0.2-1); PHOSPHOROUS 4.3 mg/dL (2.5-4.9)
[2024-11-22 10:59] LABS: TOT PROT 5.1 g/dl (6.4-8.2)
[2024-11-22 13:23] LABS: ANISOCYTOSIS 2+; MACROCYTOSIS 0
[2024-11-22] MEDS: DEXTROSE 5%-WATER - 1,000 ML IV SCH (14:06)
[2024-11-22] MEDS: GABAPENTIN 250 MG/5 ML ORAL SOLUTION, 470 ML BOTTLE GT SCH (21:27)
[2024-11-23 11:21] LABS: INR 1.16 (0.83-1.09); PROTHROMBIN TIME (PATIENT) 13.1 SEC (9.7-13.0)
[2024-11-23 11:26] LABS: HEMATOCRIT 20.9 % (35.4-49); MCH 27.2 pg (25.7-33.7); MCHC 31.4 g/dl (32.0-35.9); MEAN CELL VOLUME 86.4 fl (80-96); MEAN PLT VOLUME 7.5 fl (7.5-11.1); PLATELET COUNT 503 10^3/uL (134-434); RBC 2.41 M/mm3 (4.00-5.60); RDW 18.2 % (11.9-15.9); WHITE BLOOD COUNT 13.1 K/mm3 (4.0-10.0)
[2024-11-23 11:30] LABS: POTASSIUM 3.5 mmol/L (3.5-5.1)
[2024-11-23 11:34] LABS: HEMOGLOBIN 6.6 GM/dL (11.7-16.9)
[2024-11-23 11:41] LABS: ALBUMIN 1.5 g/dl (3.4-5.0); BLOOD UREA NITROGEN 62.7 mg/dL (7-18); CALCIUM 7.5 mg/dL (8.5-10.1)
[2024-11-23 11:44] LABS: CREATININE 1.1 mg/dL (0.55-1.3)
[2024-11-23 11:45] LABS: BILIRUBIN,TOTAL 0.3 mg/dL (0.2-1); TOT PROT 4.7 g/dl (6.4-8.2)
[2024-11-23 11:48] LABS: RETICULOCYTES 1.26 % (0.5-1.5)
[2024-11-23 12:13] LABS: HEPATITIS B SURFACE AG MATERN NON-REACTIVE (NONREACTIVE)
[2024-11-23 12:17] LABS: ANISOCYTOSIS 1+; MACROCYTOSIS 0
[2024-11-23 19:07] LABS: HEMATOCRIT 24.7 % (35.4-49); HEMOGLOBIN 7.9 GM/dL (11.7-16.9); MCH 27.3 pg (25.7-33.7); MCHC 32.1 g/dl (32.0-35.9); MEAN CELL VOLUME 85.1 fl (80-96); MEAN PLT VOLUME 6.8 fl (7.5-11.1); PLATELET COUNT 456 10^3/uL (134-434); RDW 17.2 % (11.9-15.9); WHITE BLOOD COUNT 11.7 K/mm3 (4.0-10.0)
[2024-11-24 10:00] LABS: HEMATOCRIT 23.5 % (35.4-49); HEMOGLOBIN 7.4 GM/dL (11.7-16.9); MCH 27.2 pg (25.7-33.7); MCHC 31.3 g/dl (32.0-35.9); MEAN CELL VOLUME 86.7 fl (80-96); MEAN PLT VOLUME 6.8 fl (7.5-11.1); PLATELET COUNT 423 10^3/uL (134-434); RBC 2.71 M/mm3 (4.00-5.60); RDW 17.1 % (11.9-15.9)
[2024-11-24 10:13] LABS: POTASSIUM 3.5 mmol/L (3.5-5.1)
[2024-11-24 10:21] LABS: ALBUMIN 1.5 g/dl (3.4-5.0); BLOOD UREA NITROGEN 58.6 mg/dL (7-18)
[2024-11-24 10:22] LABS: CALCIUM 7.6 mg/dL (8.5-10.1)
[2024-11-24 10:25] LABS: CREATININE 1.1 mg/dL (0.55-1.3)
[2024-11-24 10:26] LABS: BILIRUBIN,TOTAL 0.3 mg/dL (0.2-1); TOT PROT 4.7 g/dl (6.4-8.2)
[2024-11-24 13:06] VITALS: BMI 24.2
[2024-11-25 09:30] LABS: EOS % 0.8 % (0-4.5); HEMATOCRIT 23.8 % (35.4-49); HEMOGLOBIN 7.5 GM/dL (11.7-16.9); LYMPH % 24.2 % (8-40); MCH 27.6 pg (25.7-33.7); MCHC 31.7 g/dl (32.0-35.9); MEAN PLT VOLUME 6.9 fl (7.5-11.1); MONO % 4.1 % (3.8-10.2); NEUT % 70.9 % (42.8-82.8); PLATELET COUNT 384 10^3/uL (134-434); RBC 2.73 M/mm3 (4.00-5.60); RDW 17.1 % (11.9-15.9); WHITE BLOOD COUNT 13.6 K/mm3 (4.0-10.0)
[2024-11-25 09:36] LABS: POTASSIUM 3.5 mmol/L (3.5-5.1)
[2024-11-25 09:42] LABS: ALBUMIN 1.5 g/dl (3.4-5.0); BLOOD UREA NITROGEN 54.8 mg/dL (7-18); CALCIUM 7.6 mg/dL (8.5-10.1)
[2024-11-25 09:44] LABS: MAGNESIUM 1.7 mg/dL (1.8-2.4)
[2024-11-25 09:45] LABS: BILIRUBIN,TOTAL 0.3 mg/dL (0.2-1)
[2024-11-25 09:47] LABS: TOT PROT 4.8 g/dl (6.4-8.2)
[2024-11-25] MEDS: POTASSIUM CHLORIDE ORAL LIQUID 20 MEQ/15 ML GT ONE (10:26)
[2024-11-25] MEDS: MAGNESIUM SULFATE IN WATER 2 GM/50 ML IVPB IVPB ONE (11:36)
[2024-11-26 09:17] LABS: BASO % 0.3 % (0-2.0); EOS % 2.5 % (0-4.5); HEMOGLOBIN 7.3 GM/dL (11.7-16.9); LYMPH % 27.2 % (8-40); MCH 27.7 pg (25.7-33.7); MCHC 31.8 g/dl (32.0-35.9); MEAN CELL VOLUME 87.1 fl (80-96); PLATELET COUNT 349 10^3/uL (134-434); RBC 2.64 M/mm3 (4.00-5.60); RDW 17.3 % (11.9-15.9); WHITE BLOOD COUNT 12.9 K/mm3 (4.0-10.0)
[2024-11-26 09:51] LABS: ALBUMIN 1.4 g/dl (3.4-5.0); BLOOD UREA NITROGEN 45.3 mg/dL (7-18); CALCIUM 7.4 mg/dL (8.5-10.1); MAGNESIUM 1.8 mg/dL (1.8-2.4)
[2024-11-26 09:52] LABS: BILIRUBIN,TOTAL 0.3 mg/dL (0.2-1)
[2024-11-26 09:54] LABS: CREATININE 0.9 mg/dL (0.55-1.3)
[2024-11-26 09:55] LABS: PHOSPHOROUS 2.1 mg/dL (2.5-4.9)
[2024-11-26 09:56] LABS: TOT PROT 4.8 g/dl (6.4-8.2)
[2024-11-26] MEDS: MAGNESIUM SULFATE IN WATER 2 GM/50 ML IVPB IVPB ONE (10:54)
[2024-11-26] MEDS: ACETAMINOPHEN 500 MG TABLET (FP) GT PRN (16:56)
[2024-11-27 09:08] LABS: BASO % 0.2 % (0-2.0); EOS % 2.5 % (0-4.5); HEMATOCRIT 22.8 % (35.4-49); HEMOGLOBIN 7.2 GM/dL (11.7-16.9); LYMPH % 23.1 % (8-40); MCH 27.5 pg (25.7-33.7); MCHC 31.6 g/dl (32.0-35.9); MEAN PLT VOLUME 7.5 fl (7.5-11.1); MONO % 4.9 % (3.8-10.2); NEUT % 69.3 % (42.8-82.8); PLATELET COUNT 285 10^3/uL (134-434); RBC 2.62 M/mm3 (4.00-5.60); RDW 17.8 % (11.9-15.9); WHITE BLOOD COUNT 13.4 K/mm3 (4.0-10.0)
[2024-11-27 09:35] LABS: ALBUMIN 1.4 g/dl (3.4-5.0); BLOOD UREA NITROGEN 38.6 mg/dL (7-18); CALCIUM 7.5 mg/dL (8.5-10.1)
[2024-11-27 09:38] LABS: CREATININE 0.9 mg/dL (0.55-1.3)
[2024-11-27 09:39] LABS: BILIRUBIN,TOTAL 0.4 mg/dL (0.2-1); TOT PROT 4.9 g/dl (6.4-8.2)
[2024-11-27] MEDS: SODIUM CHLORIDE 1,000 ML IV STA (10:28)
[2024-11-27] MEDS ORDERED: PROPOFOL 20 ML ONE (11:17)
[2024-11-27] MEDS ORDERED: ROCURONIUM BROMIDE 50 MG/5 ML SYRINGE ONE (11:18)
[2024-11-27] MEDS ORDERED: SUCCINYLCHOLINE CHLORIDE 200 MG/10 ML SYRINGE ONE (11:19)
[2024-11-27] MEDS ORDERED: PHENYLEPHRINE HCL 10 MG/1 ML SINGLE DOSE VIAL ONE (12:41)
[2024-11-27] MEDS ORDERED: CALCIUM CHLORIDE 1 GM/10 ML *DISP.SYRIN ONE (12:46)
[2024-11-27] MEDS ORDERED: SUGAMMADEX SODIUM 200 MG/2 ML VIAL ONE (12:57)
[2024-11-27] MEDS: LACTATED RINGERS SOLUTION 1,000 ML IV SCH ×2 (14:57→14:58)
[2024-11-27] MEDS: GABAPENTIN 250 MG/5 ML ORAL SOLUTION, 470 ML BOTTLE GT SCH (21:56)
[2024-11-27] MEDS: FIDAXOMICIN 200 MG TABLET PO SCH (21:57)
[2024-11-27] MEDS: ATORVASTATIN CA 40 MG TABLET (FP) GT SCH (21:57)
[2024-11-27] MEDS: CLOTRIMAZOLE 1% 10 ML TOPICAL SOLUTION TP SCH (21:57)
[2024-11-27] MEDS: AMINO ACIDS/PROTEIN HYDROLYS 30 ML LIQUID.PKT GT SCH (21:57)
[2024-11-28] MEDS: LACTOBACILLUS ACIDOPHILUS 1 TABLET GT SCH (11:12)
[2024-11-28] MEDS: ACETAMINOPHEN 500 MG TABLET (FP) GT PRN (11:12)
[2024-11-28] MEDS: ZINC SULFATE 220 MG CAPSULE (FP) GT SCH (11:12)
[2024-11-28] MEDS: CHOLECALCIFEROL (VIT D3) 1,000 UNIT (25 MCG) TABLET GT SCH (11:13)
[2024-11-28] MEDS: LOSARTAN POTASSIUM 50 MG TABLET GT SCH (11:13)
[2024-11-28] MEDS: VITAMIN B COMP W-C 1 EA TABLET (NEPHRO-VITE) GT SCH (11:13)
[2024-11-28] MEDS: NYSTATIN POWDER 100,000 UNITS/GM - 15 GM TOPICAL POWDER TP SCH (11:14)
[2024-11-28] MEDS: ASCORBIC ACID 500 MG/5 ML UNIT DOSE CUP GT SCH (11:15)
[2024-11-28] MEDS: LACTATED RINGERS SOLUTION 1,000 ML/1,000 ML INFUS.BAG IV SCH (11:26)
[2024-11-28 14:10] LABS: BASO % 0.1 % (0-2.0); EOS % 0.9 % (0-4.5); HEMATOCRIT 19.5 % (35.4-49); LYMPH % 17.1 % (8-40); MCH 27.5 pg (25.7-33.7); MCHC 31.8 g/dl (32.0-35.9); MEAN CELL VOLUME 86.6 fl (80-96); MONO % 4.3 % (3.8-10.2); NEUT % 77.6 % (42.8-82.8); PLATELET COUNT 271 10^3/uL (134-434); RBC 2.25 M/mm3 (4.00-5.60); RDW 17.4 % (11.9-15.9); WHITE BLOOD COUNT 14.2 K/mm3 (4.0-10.0)
[2024-11-28 14:18] LABS: HEMOGLOBIN 6.2 GM/dL (11.7-16.9)
[2024-11-28] MEDS: ENOXAPARIN NA (PORCINE) 40 MG/0.4 ML DISP.SYRIN SQ SCH (16:02)
[2024-11-28] MEDS: ACETAMINOPHEN 325 MG TABLET (FP) NR PRN (17:38)
[2024-11-29 10:17] LABS: HEMATOCRIT 22.9 % (35.4-49); HEMOGLOBIN 7.5 GM/dL (11.7-16.9); MCH 27.9 pg (25.7-33.7); MCHC 32.7 g/dl (32.0-35.9); MEAN CELL VOLUME 85.3 fl (80-96); MEAN PLT VOLUME 8.3 fl (7.5-11.1); PLATELET COUNT 215 10^3/uL (134-434); RBC 2.69 M/mm3 (4.00-5.60); RDW 16.4 % (11.9-15.9); WHITE BLOOD COUNT 20.7 K/mm3 (4.0-10.0)
[2024-11-29 10:26] LABS: POTASSIUM 3.6 mmol/L (3.5-5.1)
[2024-11-29 10:29] LABS: BLOOD UREA NITROGEN 29.7 mg/dL (7-18); CALCIUM 7.4 mg/dL (8.5-10.1)
[2024-11-29 10:33] LABS: CREATININE 0.8 mg/dL (0.55-1.3)
[2024-11-29 10:55] LABS: ANISOCYTOSIS 0; MACROCYTOSIS 0
[2024-11-29] MEDS: CEFTAZIDIME/AVIBACTAM 2.5 GM in DEXTROSE 5%-WATER - 250 ML IVPB SCH (13:01)
[2024-11-30] MEDS: SCOPOLAMINE HYDROBROMIDE 1 PATCH PATCH.TD72 TD SCH (02:35)
[2024-11-30 09:09] LABS: BASO % 0.2 % (0-2.0); EOS % 0.8 % (0-4.5); HEMATOCRIT 22.7 % (35.4-49); HEMOGLOBIN 7.3 GM/dL (11.7-16.9); LYMPH % 18.4 % (8-40); MCH 27.6 pg (25.7-33.7); MCHC 32.1 g/dl (32.0-35.9); MEAN CELL VOLUME 86.1 fl (80-96); MEAN PLT VOLUME 7.3 fl (7.5-11.1); MONO % 4.6 % (3.8-10.2); PLATELET COUNT 271 10^3/uL (134-434); RBC 2.64 M/mm3 (4.00-5.60); RDW 16.3 % (11.9-15.9); WHITE BLOOD COUNT 17.9 K/mm3 (4.0-10.0)
[2024-11-30 09:30] LABS: POTASSIUM 3.3 mmol/L (3.5-5.1)
[2024-11-30 09:45] LABS: CALCIUM 7.3 mg/dL (8.5-10.1)
[2024-11-30 09:46] LABS: BLOOD UREA NITROGEN 34.6 mg/dL (7-18)
[2024-11-30] MEDS: POTASSIUM CHLORIDE ORAL LIQUID 20 MEQ/15 ML GT SCH (11:26)
[2024-11-30] MEDS: AMINO ACIDS 4.25%/D5W 1,000 ML IV SCH (20:50)
[2024-11-30] MEDS: APIXABAN 5 MG TABLET PO SCH (22:43)
[2024-12-01 09:06] LABS: BASO % 0.4 % (0-2.0); EOS % 3.6 % (0-4.5); HEMATOCRIT 20.5 % (35.4-49); LYMPH % 16.2 % (8-40); MCH 29.1 pg (25.7-33.7); MCHC 33.6 g/dl (32.0-35.9); MEAN CELL VOLUME 86.5 fl (80-96); MEAN PLT VOLUME 7.7 fl (7.5-11.1); MONO % 4.9 % (3.8-10.2); NEUT % 74.9 % (42.8-82.8); PLATELET COUNT 206 10^3/uL (134-434); RBC 2.37 M/mm3 (4.00-5.60); RDW 16.7 % (11.9-15.9); WHITE BLOOD COUNT 9.4 K/mm3 (4.0-10.0)
[2024-12-01 09:12] LABS: HEMOGLOBIN 6.9 GM/dL (11.7-16.9)
[2024-12-01 09:32] LABS: POTASSIUM 3.7 mmol/L (3.5-5.1)
[2024-12-01 09:40] LABS: CREATININE 0.9 mg/dL (0.55-1.3); PHOSPHOROUS 2.8 mg/dL (2.5-4.9)
[2024-12-01 09:41] LABS: ALBUMIN 1.2 g/dl (3.4-5.0)
[2024-12-01 09:42] LABS: BILIRUBIN,TOTAL 0.3 mg/dL (0.2-1); TOT PROT 4.7 g/dl (6.4-8.2)
[2024-12-01 09:44] LABS: CALCIUM 7.3 mg/dL (8.5-10.1)
[2024-12-01 09:45] LABS: BLOOD UREA NITROGEN 31.8 mg/dL (7-18); MAGNESIUM 1.4 mg/dL (1.8-2.4)
[2024-12-02 08:44] LABS: BASO % 0.6 % (0-2.0); HEMATOCRIT 25.8 % (35.4-49); HEMOGLOBIN 8.4 GM/dL (11.7-16.9); LYMPH % 30.9 % (8-40); MCH 27.8 pg (25.7-33.7); MCHC 32.3 g/dl (32.0-35.9); MEAN PLT VOLUME 6.7 fl (7.5-11.1); MONO % 4.1 % (3.8-10.2); NEUT % 60.4 % (42.8-82.8); PLATELET COUNT 303 10^3/uL (134-434); RDW 15.5 % (11.9-15.9); WHITE BLOOD COUNT 11.9 K/mm3 (4.0-10.0)
[2024-12-02 09:01] LABS: POTASSIUM 3.4 mmol/L (3.5-5.1)
[2024-12-02 09:03] LABS: CALCIUM 7.4 mg/dL (8.5-10.1)
[2024-12-02 09:05] LABS: ALBUMIN 1.3 g/dl (3.4-5.0); BLOOD UREA NITROGEN 29.7 mg/dL (7-18); MAGNESIUM 1.4 mg/dL (1.8-2.4)
[2024-12-02 09:08] LABS: CREATININE 0.7 mg/dL (0.55-1.3)
[2024-12-02 09:09] LABS: BILIRUBIN,TOTAL 0.3 mg/dL (0.2-1); TOT PROT 5.2 g/dl (6.4-8.2)
[2024-12-02] MEDS: FIDAXOMICIN 200 MG TABLET PO ONE (14:55)
[2024-12-03 09:22] LABS: BASO % 0.6 % (0-2.0); EOS % 6.2 % (0-4.5); HEMATOCRIT 23.8 % (35.4-49); LYMPH % 23.6 % (8-40); MCH 28.4 pg (25.7-33.7); MCHC 33.6 g/dl (32.0-35.9); MEAN CELL VOLUME 84.6 fl (80-96); MEAN PLT VOLUME 6.9 fl (7.5-11.1); MONO % 6.5 % (3.8-10.2); NEUT % 63.1 % (42.8-82.8); PLATELET COUNT 274 10^3/uL (134-434); RBC 2.81 M/mm3 (4.00-5.60); RDW 15.7 % (11.9-15.9); WHITE BLOOD COUNT 6.8 K/mm3 (4.0-10.0)
[2024-12-03 09:55] LABS: POTASSIUM 3.2 mmol/L (3.5-5.1)
[2024-12-03 10:05] LABS: ALBUMIN 1.2 g/dl (3.4-5.0); BLOOD UREA NITROGEN 26.8 mg/dL (7-18); CALCIUM 7.3 mg/dL (8.5-10.1); MAGNESIUM 1.4 mg/dL (1.8-2.4)
[2024-12-03 10:08] LABS: CREATININE 0.7 mg/dL (0.55-1.3)
[2024-12-03 10:13] LABS: BILIRUBIN,TOTAL 0.3 mg/dL (0.2-1)
[2024-12-03] MEDS: POTASSIUM CHLORIDE ORAL LIQUID 20 MEQ/15 ML GT ONE (11:27)
[2024-12-03] MEDS: MAGNESIUM 2GM/50ML STERILE WATER IVPB IVPB ONE (18:41)
[2024-12-04 08:46] LABS: HEMATOCRIT 25.3 % (35.4-49); HEMOGLOBIN 8.4 GM/dL (11.7-16.9); MCH 28.6 pg (25.7-33.7); MCHC 33.4 g/dl (32.0-35.9); MEAN CELL VOLUME 85.8 fl (80-96); MEAN PLT VOLUME 6.7 fl (7.5-11.1); PLATELET COUNT 304 10^3/uL (134-434); RBC 2.95 M/mm3 (4.00-5.60); RDW 15.9 % (11.9-15.9); WHITE BLOOD COUNT 7.7 K/mm3 (4.0-10.0)
[2024-12-04 08:47] LABS: POTASSIUM 3.4 mmol/L (3.5-5.1)
[2024-12-04 08:48] LABS: CALCIUM 7.3 mg/dL (8.5-10.1)
[2024-12-04 08:49] LABS: ALBUMIN 1.3 g/dl (3.4-5.0); BLOOD UREA NITROGEN 24.7 mg/dL (7-18)
[2024-12-04 08:53] LABS: BILIRUBIN,TOTAL 0.3 mg/dL (0.2-1); CREATININE 0.7 mg/dL (0.55-1.3)
[2024-12-04 08:54] LABS: TOT PROT 5.1 g/dl (6.4-8.2)
[2024-12-04 09:17] LABS: MAGNESIUM 1.6 mg/dL (1.8-2.4)
[2024-12-04] MEDS: POTASSIUM CHLORIDE ORAL LIQUID 20 MEQ/15 ML GT ONE (09:21)
[2024-12-04 09:30] LABS: ANISOCYTOSIS 1+; MACROCYTOSIS 0
[2024-12-05 09:23] LABS: BASO % 0.6 % (0-2.0); EOS % 5.9 % (0-4.5); HEMATOCRIT 24.7 % (35.4-49); HEMOGLOBIN 8.1 GM/dL (11.7-16.9); LYMPH % 29.9 % (8-40); MCHC 32.9 g/dl (32.0-35.9); MEAN CELL VOLUME 85.2 fl (80-96); MEAN PLT VOLUME 6.7 fl (7.5-11.1); MONO % 5.2 % (3.8-10.2); NEUT % 58.4 % (42.8-82.8); PLATELET COUNT 328 10^3/uL (134-434); RDW 15.9 % (11.9-15.9); WHITE BLOOD COUNT 7.5 K/mm3 (4.0-10.0)
[2024-12-05 09:52] LABS: POTASSIUM 3.5 mmol/L (3.5-5.1)
[2024-12-05 10:27] LABS: ALBUMIN 1.3 g/dl (3.4-5.0); BLOOD UREA NITROGEN 23.4 mg/dL (7-18); CALCIUM 7.7 mg/dL (8.5-10.1)
[2024-12-05 10:28] LABS: BILIRUBIN,TOTAL 0.3 mg/dL (0.2-1); TOT PROT 5.1 g/dl (6.4-8.2)
[2024-12-05 10:30] LABS: CREATININE 0.7 mg/dL (0.55-1.3)
[2024-12-06] MEDS: CEFTAZIDIME/AVIBACTAM 2.5 GM in DEXTROSE 5%-WATER - 250 ML IVPB SCH (02:39)
[2024-12-06 09:37] LABS: BASO % 0.8 % (0-2.0); EOS % 5.8 % (0-4.5); HEMATOCRIT 26.4 % (35.4-49); HEMOGLOBIN 8.8 GM/dL (11.7-16.9); LYMPH % 27.7 % (8-40); MCH 28.7 pg (25.7-33.7); MCHC 33.5 g/dl (32.0-35.9); MEAN CELL VOLUME 85.8 fl (80-96); MEAN PLT VOLUME 6.6 fl (7.5-11.1); MONO % 5.7 % (3.8-10.2); PLATELET COUNT 357 10^3/uL (134-434); RBC 3.08 M/mm3 (4.00-5.60); RDW 15.9 % (11.9-15.9)
[2024-12-06 09:51] LABS: POTASSIUM 3.4 mmol/L (3.5-5.1)
[2024-12-06 09:58] LABS: ALBUMIN 1.4 g/dl (3.4-5.0); BLOOD UREA NITROGEN 23.4 mg/dL (7-18)
[2024-12-06 10:00] LABS: CREATININE 0.6 mg/dL (0.55-1.3)
[2024-12-06 10:02] LABS: BILIRUBIN,TOTAL 0.3 mg/dL (0.2-1); CALCIUM 7.7 mg/dL (8.5-10.1); TOT PROT 5.4 g/dl (6.4-8.2)
[2024-12-06] MEDS: POTASSIUM CHLORIDE ORAL LIQUID 20 MEQ/15 ML GT ONE (11:02)
[2024-12-06] MEDS: metroNIDAZOLE 250 MG TABLET GT SCH (22:40)
[2024-12-07 08:40] LABS: BASO % 0.6 % (0-2.0); HEMATOCRIT 25.3 % (35.4-49); HEMOGLOBIN 8.2 GM/dL (11.7-16.9); LYMPH % 30.7 % (8-40); MCHC 32.4 g/dl (32.0-35.9); MEAN CELL VOLUME 86.3 fl (80-96); MEAN PLT VOLUME 6.6 fl (7.5-11.1); MONO % 5.9 % (3.8-10.2); NEUT % 57.8 % (42.8-82.8); PLATELET COUNT 393 10^3/uL (134-434); RBC 2.93 M/mm3 (4.00-5.60); RDW 15.9 % (11.9-15.9); WHITE BLOOD COUNT 7.8 K/mm3 (4.0-10.0)
[2024-12-07 09:06] LABS: POTASSIUM 3.5 mmol/L (3.5-5.1)
[2024-12-07 09:08] LABS: CALCIUM 7.9 mg/dL (8.5-10.1)
[2024-12-07 09:09] LABS: ALBUMIN 1.4 g/dl (3.4-5.0); BLOOD UREA NITROGEN 26.2 mg/dL (7-18); MAGNESIUM 1.7 mg/dL (1.8-2.4)
[2024-12-07 09:11] LABS: CREATININE 0.6 mg/dL (0.55-1.3)
[2024-12-07 09:13] LABS: BILIRUBIN,TOTAL 0.3 mg/dL (0.2-1); TOT PROT 5.3 g/dl (6.4-8.2)
[2024-12-07] MEDS: MAGNESIUM 2GM/50ML STERILE WATER IVPB IVPB ONE (15:41)
[2024-12-07 21:20] VITALS: BP 151/92; PULSE 111; RESP 19; TEMP 97.3
[2024-12-07] MEDS ORDERED: APIXABAN 5 MG TABLET PO SCH (22:00)
== END 2024-12-07 22:00 | DRG 853 ==
LOC: JER 13:23 → JERBED 21:11 → J8W 11-21 08:48
PROVIDERS: ADMIT Internal Medicine; ATTEND Nurse Practitioner Family
PROC: 0D20XUZ Change Feeding Device in Upper Intestinal Tract, External Approach (ICD-10-PCS; principal; 2024-11-22)
PROC: 30233N1 Transfusion of Nonautologous Red Blood Cells into Peripheral Vein, Percutaneous Approach (ICD-10-PCS; 2024-11-22)
PROC: 0KBN0ZZ Excision of Right Hip Muscle, Open Approach (ICD-10-PCS; 2024-11-27)
PROC: 0KBP0ZZ Excision of Left Hip Muscle, Open Approach (ICD-10-PCS; 2024-11-27)
DX: A41.89 Other specified sepsis (principal); E43 Unspecified severe protein-calorie malnutrition; J18.9 Pneumonia, unspecified organism; R53.2 Functional quadriplegia; I69.351 Hemiplegia and hemiparesis following cerebral infarction affecting right dominant side; K62.5 Hemorrhage of anus and rectum; A04.72 Enterocolitis due to Clostridium difficile, not specified as recurrent; R18.8 Other ascites; T85.528A Displacement of other gastrointestinal prosthetic devices, implants and grafts, initial encounter; E87.0 Hyperosmolality and hypernatremia; J96.10 Chronic respiratory failure, unspecified whether with hypoxia or hypercapnia; I82.411 Acute embolism and thrombosis of right femoral vein; E78.5 Hyperlipidemia, unspecified; I12.9 Hypertensive chronic kidney disease with stage 1 through stage 4 chronic kidney disease, or unspecified chronic kidney disease; E11.22 Type 2 diabetes mellitus with diabetic chronic kidney disease; N18.32 Chronic kidney disease, stage 3b; I69.391 Dysphagia following cerebral infarction; R14.0 Abdominal distension (gaseous); D72.829 Elevated white blood cell count, unspecified; L89.150 Pressure ulcer of sacral region, unstageable; D63.8 Anemia in other chronic diseases classified elsewhere; K21.9 Gastro-esophageal reflux disease without esophagitis; R74.8 Abnormal levels of other serum enzymes; E86.0 Dehydration; R79.89 Other specified abnormal findings of blood chemistry; R33.9 Retention of urine, unspecified; Y83.8 Other surgical procedures as the cause of abnormal reaction of the patient, or of later complication, without mention of misadventure at the time of the procedure; Z93.1 Gastrostomy status; Z87.11 Personal history of peptic ulcer disease; Z93.0 Tracheostomy status; B96.1 Klebsiella pneumoniae [K. pneumoniae] as the cause of diseases classified elsewhere; Z68.23 Body mass index [BMI] 23.0-23.9, adult; Z78.9 Other specified health status; Z88.0 Allergy status to penicillin; Z74.01 Bed confinement status
CPT/HCPCS: 0241U-QW; 36415; 36430; 71045-TC-FY; 74018-TC-FY; 74150-TC; 74176-TC; 80048; 80053; 81003; 82728; 82803; 82962; 83516; 83540; 83550; 83605; 83735; 84100; 84484; 85025; 85027; 85045; 85610; 85651; 85730; 86038; 86140; 86704; 86803; 86850; 86900; 86901; 86922; 87040; 87070; 87086; 87186; 87205; 87340; 87517; 87635; 88304-TC; 93005; 93010; 93970-TC; 94760; 99285-25; P9058

== ENCOUNTER 2025-01-12 12:47 | Inpatient (IN) | payer OTHER ==
[2025-01-12 13:54] LABS: HEMATOCRIT 26.2 % (35.4-49); HEMOGLOBIN 8.4 GM/dL (11.7-16.9); MCH 27.2 pg (25.7-33.7); MEAN PLT VOLUME 7.7 fl (7.5-11.1); PLATELET COUNT 679 10^3/uL (134-434); RBC 3.09 M/mm3 (4.00-5.60); RDW 16.2 % (11.9-15.9); WHITE BLOOD COUNT 26.4 K/mm3 (4.0-10.0)
[2025-01-12 13:56] LABS: EPI CELLS 0 /uL (0-25.1); HYALINE CASTS 0 /uL (0-3.1); PH,URINE 5.5 (5.0-8.0); URINE APPEARANCE CLOUDY; URINE BACTERIA 356 /uL (0-1359); URINE BILIRUBIN NEGATIVE (NEGATIVE); URINE COLOR DK YELLOW; URINE GLUCOSE (UA) NEGATIVE (NEGATIVE); URINE KETONE NEGATIVE (NEGATIVE); URINE LEUK ESTERASE 2+ (NEGATIVE); URINE NITRITE NEGATIVE (NEGATIVE); URINE PROTEIN 1+ (NEGATIVE); URINE RBC 17 /uL (0-23.9); URINE UROBILINOGEN 0.2 mg/dL (0.2-1.0); URINE WBC 1122 /uL (0-25.8)
[2025-01-12] MEDS: SODIUM CHLORIDE 0.9% 500 ML INFUS.BAG IV ONE ×3 (13:59→21:45)
[2025-01-12 14:00] LABS: INR 1.9 (0.83-1.09); PROTHROMBIN TIME (PATIENT) 20.9 SEC (9.7-13.0)
[2025-01-12 14:03] LABS: ACTIVATED PTT 27.9 SECONDS (25.2-36.5)
[2025-01-12 14:09] LABS: YEAST PRESENT (NEGATIVE)
[2025-01-12 14:12] LABS: CHLORIDE 89 mmol/L (98-107); POTASSIUM 5.8 mmol/L (3.5-5.1); SODIUM 128 mmol/L (136-145)
[2025-01-12 14:14] LABS: CALCIUM 7.8 mg/dL (8.5-10.1)
[2025-01-12 14:15] LABS: ALBUMIN 1.7 g/dl (3.4-5.0); ANION GAP 10 mmol/L (4-13); CO2 29 mmol/L (21-32); GLUCOSE,RANDOM 234 mg/dL (74-106)
[2025-01-12 14:18] LABS: CREATININE 1.7 mg/dL (0.55-1.3); SGOT/AST 137 U/L (15-37); SGPT/ALT 189 U/L (13-61)
[2025-01-12 14:19] LABS: BLOOD UREA NITROGEN 149.2 mg/dL (7-18)
[2025-01-12 14:20] LABS: BILIRUBIN,TOTAL 0.4 mg/dL (0.2-1); TOT PROT 6.1 g/dl (6.4-8.2)
[2025-01-12 14:21] LABS: ALK PHOS 598 U/L (45-117)
[2025-01-12 14:32] LABS: LACTIC ACID 3.1 mmol/L (0.4-2.0)
[2025-01-12] MEDS: CEFTAZIDIME/AVIBACTAM 2.5 GM in DEXTROSE 5%-WATER - 250 ML IVPB ONE (15:05)
[2025-01-12] MEDS ORDERED: MEROPENEM 1 GM VIAL (RESTRICTED TO ID) IVPB ONE (15:06)
[2025-01-12] MEDS: MEROPENEM 1 GM in DEXTROSE 5%-WATER 100 ML IVPB ONE (15:08)
[2025-01-12 15:10] LABS: ANISOCYTOSIS 0; HELMET CELLS 0; HOWELL-JOLLY BODIES 0; MACROCYTOSIS 0; OVALOCYTE 0; ROULEAU 0; SICKELED CELLS 0; TARGET CELLS 0; TEAR DROP CELLS 0; TOXIC GRANULATION 0
[2025-01-12 17:24] LABS: LACTIC ACID 3.1 mmol/L (0.4-2.0)
[2025-01-13] MEDS: LACTATED RINGERS SOLUTION 1,000 ML/1,000 ML INFUS.BAG IV SCH (01:15)
[2025-01-13] MEDS: MIDODRINE HCL 5 MG TABLET PO PRN (01:16)
[2025-01-13 04:24] LABS: LACTIC ACID 2.2 mmol/L (0.4-2.0)
[2025-01-13] MEDS: SODIUM ZIRCONIUM CYCLOSILICATE (LOKELMA) 5 GM PACKET NGT ONE (04:42)
[2025-01-13] MEDS: VANCOMYCIN 250 MG/5 ML ORAL SOLUTION (RESTRICTED TO ID ONLY) NGT SCH (05:58)
[2025-01-13] MEDS: INSULIN ASPART SLIDING SCALE (NOVOLOG) 1 VIAL SQ SCH (06:01)
[2025-01-13 08:28] LABS: HEMATOCRIT 23.3 % (35.4-49); HEMOGLOBIN 7.5 GM/dL (11.7-16.9); MCH 27.8 pg (25.7-33.7); MCHC 32.1 g/dl (32.0-35.9); MEAN CELL VOLUME 86.6 fl (80-96); MEAN PLT VOLUME 7.3 fl (7.5-11.1); PLATELET COUNT 555 10^3/uL (134-434); RBC 2.69 M/mm3 (4.00-5.60); RDW 15.5 % (11.9-15.9); WHITE BLOOD COUNT 20.6 K/mm3 (4.0-10.0)
[2025-01-13 08:40] LABS: CHLORIDE 97 mmol/L (98-107); POTASSIUM 4.5 mmol/L (3.5-5.1); SODIUM 135 mmol/L (136-145)
[2025-01-13 08:42] LABS: ALBUMIN 1.5 g/dl (3.4-5.0); CALCIUM 7.8 mg/dL (8.5-10.1)
[2025-01-13 08:43] LABS: ANION GAP 9 mmol/L (4-13); CO2 29 mmol/L (21-32); GLUCOSE,RANDOM 161 mg/dL (74-106); MAGNESIUM 3.8 mg/dL (1.8-2.4)
[2025-01-13 08:46] LABS: CREATININE 1.4 mg/dL (0.55-1.3); PHOSPHOROUS 4.6 mg/dL (2.5-4.9); SGOT/AST 57 U/L (15-37); SGPT/ALT 122 U/L (13-61)
[2025-01-13 08:47] LABS: BILIRUBIN,TOTAL 0.4 mg/dL (0.2-1); TOT PROT 5.1 g/dl (6.4-8.2)
[2025-01-13 08:57] LABS: ALK PHOS 398 U/L (45-117); BLOOD UREA NITROGEN 140.7 mg/dL (7-18); LACTIC ACID 2.6 mmol/L (0.4-2.0)
[2025-01-13] MEDS: VANCOMYCIN 1 GM PREMIX (F) 1 GM/200 ML BAG IVPB SCH ×2 (09:24→22:23)
[2025-01-13] MEDS: MEROPENEM-0.9% SODIUM CHLORIDE 1 GM/50 ML BAG IVPB SCH ×2 (09:24→17:12)
[2025-01-13] MEDS: AMINO ACIDS/PROTEIN HYDROLYS 30 ML LIQUID.PKT NGT SCH (09:24)
[2025-01-13] MEDS: CHOLECALCIFEROL (VIT D3) 1,000 UNIT (25 MCG) TABLET GT SCH (09:25)
[2025-01-13] MEDS: LACTOBACILLUS ACIDOPHILUS 1 TABLET GT SCH (09:25)
[2025-01-13] MEDS: VITAMIN B COMP W-C 1 EA TABLET (NEPHRO-VITE) PO SCH (09:25)
[2025-01-13] MEDS: ASPIRIN 81 MG CHEWABLE TABLETS GT SCH (09:25)
[2025-01-13] MEDS: APIXABAN 5 MG TABLET NGT SCH (09:25)
[2025-01-13] MEDS: ASCORBIC ACID 500 MG TABLET (FP) GT SCH (09:25)
[2025-01-13] MEDS ORDERED: PATIENT'S OWN MEDICATION (NON-FORMULARY) (Argin/Glut/Cahmb/Collag/Mv-Min [Juven Packet] 1 NGT SCH (10:00)
[2025-01-13 10:17] LABS: ANISOCYTOSIS 1+; MACROCYTOSIS 0
[2025-01-13] MEDS: SODIUM CHLORIDE 1,000 ML IV STA (11:08)
[2025-01-13] MEDS: SODIUM CHLORIDE 500 ML IV STA ×2 (12:33→13:40)
[2025-01-13] MEDS: FERROUS SO4 300 MG/5 ML ORAL SOLN UNIT DOSE CUPS GT SCH (12:34)
[2025-01-13] MEDS: ZINC OXIDE 20% TOPICAL OINTMENT 30 GM TUBE TP SCH (12:34)
[2025-01-13] MEDS: FIDAXOMICIN 200 MG TABLET PO SCH (13:45)
[2025-01-13 16:20] VITALS: BMI 21.4
[2025-01-13] MEDS: ACETAMINOPHEN 650 MG/20.3 ML ORAL SOLUTION (CUPS) NGT PRN (22:23)
[2025-01-14 08:21] LABS: HEMATOCRIT 22.9 % (35.4-49); HEMOGLOBIN 7.1 GM/dL (11.7-16.9); MCH 27.4 pg (25.7-33.7); MEAN CELL VOLUME 88.4 fl (80-96); MEAN PLT VOLUME 7.7 fl (7.5-11.1); PLATELET COUNT 577 10^3/uL (134-434); RBC 2.59 M/mm3 (4.00-5.60); RDW 15.7 % (11.9-15.9); WHITE BLOOD COUNT 23.3 K/mm3 (4.0-10.0)
[2025-01-14 08:43] LABS: CHLORIDE 106 mmol/L (98-107); POTASSIUM 3.8 mmol/L (3.5-5.1); SODIUM 141 mmol/L (136-145)
[2025-01-14 08:47] LABS: CALCIUM 7.6 mg/dL (8.5-10.1)
[2025-01-14 08:48] LABS: ANION GAP 10 mmol/L (4-13); CO2 26 mmol/L (21-32); GLUCOSE,RANDOM 184 mg/dL (74-106)
[2025-01-14 08:51] LABS: CREATININE 1.1 mg/dL (0.55-1.3)
[2025-01-14] MEDS: SCOPOLAMINE HYDROBROMIDE 1 PATCH PATCH.TD72 TD SCH (10:31)
[2025-01-14 18:48] LABS: URINE APPEARANCE TURBID; URINE BILIRUBIN NEGATIVE (NEGATIVE); URINE COLOR DK YELLOW; URINE GLUCOSE (UA) NEGATIVE (NEGATIVE); URINE KETONE NEGATIVE (NEGATIVE); URINE LEUK ESTERASE 2+ (NEGATIVE); URINE NITRITE NEGATIVE (NEGATIVE); URINE PROTEIN 1+ (NEGATIVE); URINE UROBILINOGEN 0.2 mg/dL (0.2-1.0)
[2025-01-14 19:16] LABS: HYALINE CASTS 15.36 /uL (0-3.1); URINE BACTERIA 4.7 /uL (0-1359); URINE RBC 442.4 /uL (0-23.9); URINE WBC 426.7 /uL (0-25.8)
[2025-01-14 19:17] LABS: YEAST FEW (NEGATIVE)
[2025-01-15] MEDS ORDERED: MEROPENEM-0.9% SODIUM CHLORIDE 1 GM/50 ML BAG IVPB SCH (02:00)
[2025-01-15 07:24] LABS: HEMATOCRIT 13.1 % (35.4-49); MCH 28.1 pg (25.7-33.7); MCHC 31.3 g/dl (32.0-35.9); PLATELET COUNT 568 10^3/uL (134-434); RBC 1.45 M/mm3 (4.00-5.60); RDW 16.1 % (11.9-15.9); WHITE BLOOD COUNT 26.8 K/mm3 (4.0-10.0)
[2025-01-15 07:36] LABS: HEMOGLOBIN 4.1 GM/dL (11.7-16.9)
[2025-01-15 07:45] LABS: POTASSIUM 3.7 mmol/L (3.5-5.1)
[2025-01-15 07:48] LABS: BLOOD UREA NITROGEN 90.4 mg/dL (7-18); CALCIUM 7.5 mg/dL (8.5-10.1)
[2025-01-15 09:38] LABS: HEMATOCRIT 25.6 % (35.4-49); HEMOGLOBIN 7.9 GM/dL (11.7-16.9); MCH 27.2 pg (25.7-33.7); MEAN CELL VOLUME 87.8 fl (80-96); MEAN PLT VOLUME 7.3 fl (7.5-11.1); PLATELET COUNT 565 10^3/uL (134-434); RBC 2.92 M/mm3 (4.00-5.60); RDW 16.1 % (11.9-15.9); WHITE BLOOD COUNT 22.5 K/mm3 (4.0-10.0)
[2025-01-16 08:03] LABS: POTASSIUM 3.9 mmol/L (3.5-5.1)
[2025-01-16 08:05] LABS: HEMATOCRIT 22.3 % (35.4-49); MCH 27.2 pg (25.7-33.7); MCHC 30.9 g/dl (32.0-35.9); MEAN CELL VOLUME 88.2 fl (80-96); MEAN PLT VOLUME 7.6 fl (7.5-11.1); PLATELET COUNT 536 10^3/uL (134-434); RBC 2.52 M/mm3 (4.00-5.60); RDW 15.9 % (11.9-15.9); WHITE BLOOD COUNT 22.5 K/mm3 (4.0-10.0)
[2025-01-16 08:07] LABS: CALCIUM 7.7 mg/dL (8.5-10.1)
[2025-01-16 08:08] LABS: BLOOD UREA NITROGEN 93.1 mg/dL (7-18)
[2025-01-16 08:11] LABS: CREATININE 1.2 mg/dL (0.55-1.3)
[2025-01-16 08:15] LABS: HEMOGLOBIN 6.9 GM/dL (11.7-16.9)
[2025-01-16] MEDS: MORPHINE 100mg/NS INFUSION 100 MG/100 ML MG IVPB SCH (12:44)
[2025-01-18] MEDS: MORPHINE 100mg/NS INFUSION 100 MG/100 ML MG IVPB SCH (07:55)
[2025-01-19] MEDS: MORPHINE 100mg/NS INFUSION 100 MG/100 ML MG IVPB SCH (20:24)
[2025-01-20] MEDS: SCOPOLAMINE HYDROBROMIDE 1 PATCH PATCH.TD72 TD SCH (11:27)
[2025-01-23] MEDS: MORPHINE SULFATE/0.9% NACL/PF 100 MG/100 ML BAG IVPB SCH (11:49)
[2025-01-25] MEDS ORDERED: ACETAMINOPHEN 650 MG SUPP.RECT RC PRN (07:43)
[2025-01-25] MEDS: LORazepam 2 MG/ML SDV VIAL IVPUSH PRN (12:19)
[2025-01-27] MEDS: MORPHINE 100mg/NS INFUSION 100 MG/100 ML MG IVPB SCH (00:15)
[2025-01-28] MEDS: MORPHINE SULFATE/0.9% NACL/PF 100 MG/100 ML BAG IVPB SCH (04:36)
[2025-01-30] MEDS: LORazepam 2 MG/ML SDV VIAL IVPUSH PRN (09:56)
[2025-01-30 10:19] VITALS: BP 99/59; PULSE 119; RESP 16; TEMP 98
[2025-01-30] MEDS ORDERED: LORazepam 2 MG/ML SDV VIAL IVPUSH PRN (12:02)
[2025-01-30] MEDS: LORazepam 2 MG/ML SDV VIAL IVPUSH ONE (12:24)
== END 2025-01-30 22:20 | disposition expired | DRG 871 ==
LOC: JER 12:47 → JERBED 16:47 → J4S 23:57 → J8W 01-19 05:12
PROVIDERS: ADMIT Student in an Organized Health Care Education/Training Program; ATTEND Nurse Practitioner Family
DX: A41.89 Other specified sepsis (principal); J18.9 Pneumonia, unspecified organism; R53.2 Functional quadriplegia; J96.10 Chronic respiratory failure, unspecified whether with hypoxia or hypercapnia; E87.1 Hypo-osmolality and hyponatremia; G81.91 Hemiplegia, unspecified affecting right dominant side; A04.72 Enterocolitis due to Clostridium difficile, not specified as recurrent; E46 Unspecified protein-calorie malnutrition; N17.9 Acute kidney failure, unspecified; E87.20 Acidosis, unspecified; R65.20 Severe sepsis without septic shock; L89.150 Pressure ulcer of sacral region, unstageable; R33.9 Retention of urine, unspecified; E87.5 Hyperkalemia; I12.9 Hypertensive chronic kidney disease with stage 1 through stage 4 chronic kidney disease, or unspecified chronic kidney disease; E11.22 Type 2 diabetes mellitus with diabetic chronic kidney disease; N18.9 Chronic kidney disease, unspecified; E11.9 Type 2 diabetes mellitus without complications; D63.8 Anemia in other chronic diseases classified elsewhere; Z66 Do not resuscitate; K21.9 Gastro-esophageal reflux disease without esophagitis; R00.0 Tachycardia, unspecified; Z74.01 Bed confinement status; Z68.21 Body mass index [BMI] 21.0-21.9, adult; Z51.5 Encounter for palliative care
CPT/HCPCS: 36415; 71045-TC-FY; 71250-TC; 74176-TC; 80048; 80053; 81003; 82550; 82962; 83605; 83735; 84100; 84484; 85025; 85027; 85610; 85730; 86850; 86900; 86901; 87040; 87070; 87077; 87086; 87186; 87205; 87324; 87449; 87899; 93005; 93010; 99291